=== PATIENT | female | born 1950 | race Caucasian/White ===

== ENCOUNTER 2018-08-19 15:33 | Inpatient (IN) ==
[2018-08-19 16:18] LABS: Baso % (Auto) 0.2 % (0.0-2.0); Hematocrit 43.1 % (35.0-46.0); Hemoglobin 14.6 gm/dL (11.6-15.3); Lymph # (Auto) 0.7 th/mm3 (1.0-4.8); Lymph % (Auto) 6.5 % (9.0-44.0); Mean Corpuscular HGB Conc 33.9 % (32.0-36.0); Mean Corpuscular Hemoglobin 32.6 pg (27.0-34.0); Mean Platelet Volume 8.9 fL (7.0-11.0); Mono # (Auto) 1.2 th/mm3 (0.0-0.9); Mono % (Auto) 10.6 % (0.0-8.0); Neut % (Auto) 82.7 % (16.0-70.0); Platelet Count 179 th/mm3 (150-450); Red Blood Count 4.48 mil/mm3 (4.00-5.30); Red Cell Distribution Width 16.6 % (11.6-17.2); White Blood Count 10.9 th/mm3 (4.0-11.0)
--- NOTE | 2018-08-19 16:20 | XR ---
EXAM DATE: 08/19/2018 4:15 PM EDT AGE/SEX: 89 years / Female INDICATIONS: Fever, cough, and shortness of breath. CLINICAL DATA: This is the patient's initial encounter. Patient reports that signs and symptoms have been present for 1 day and indicates a pain score of Nonresponsive. MEDICAL/SURGICAL HISTORY: Non-responsive. Non-responsive. COMPARISON: No prior exams available for comparison. FINDINGS: There is patchy basilar airspace disease most characteristic of bronchopneumonia in patient with feve r and cough probable trace pleural fluid on the left. No large. There is evidence for underlying. Hea rt size within normal limits. CONCLUSION: Patchy basilar airspace disease most characteristic of bronchopneumonia. Electronically signed by: Hunter Georges MD 08/19/2018 4:18 PM EDT
[2018-08-19] MEDS ORDERED: Azithromycin Inj 500 MG in Sodium Chlor 0.9% Inj 250 ML IV.SIG STA (16:51)
[2018-08-19 16:54] LABS: Alanine Aminotransferase 33 U/L (10-53); Anion Gap 9 meq/L (5-15); Aspartate Aminotransferase 42 U/L (15-37); Blood Urea Nitrogen 40 mg/dL (7-18); Calcium 9.1 mg/dL (8.5-10.1); Carbon Dioxide 28.2 meq/L (21.0-32.0); Chloride 103 meq/L (98-107); Glomerular Filtration Rate 36 mL/min (>89); Glucose,Random 134 mg/dL (74-106); Magnesium 1.8 mg/dL (1.5-2.5); Potassium 4.4 meq/L (3.5-5.1); Sodium 140 meq/L (136-145)
[2018-08-19 16:57] LABS: Alkaline Phosphatase 110 U/L (45-117); Total Protein 7.4 g/dL (6.4-8.2); Troponin I 0.06 ng/mL (0.02-0.05)
[2018-08-19 17:01] LABS: ABG Base Excess 0.4 mmol/L (-2-2); ABG PCO2 74 mmHg (38-42); ABG PO2 78 mmHg (61-120)
--- NOTE | 2018-08-19 17:38 | ED ---
HPI General Chief Complaint: Respiratory Symptoms Stated Complaint: Resp Time Seen by Provider: 08/19/18 15:38 Source: patient and EMS Mode of arrival: EMS Limitations: no limitations History of Present Illness MD Complaint: Reports shortness of breath Onset (ago): day(s) Severity: severe Consistency/Duration: constant and progressively worsening Relieving factors: bronchodilators Exacerbating factors: nothing Known history of: Reports COPD Treatment prior to arrival: Reports oxygen, bronchodilator (DuoNeb x1 and albuterol x2 per EVAC) and other (And Solu-Medrol) Related Data Home oxygen amount: none Home Medications Medication Instructions Recorded Confirmed No Known Home Medications 08/19/18 08/19/18 Allergies Allergy/AdvReac Type Severity Reaction Status Date / Time No Known Allergies Allergy Verified 08/19/18 15:43 Review of Systems ROS: all other systems reviewed are negative [facility] Medical History Medical History COPD (chronic obstructive pulmonary disease) (Acute) Smoker (Acute) Social History Social History Substance History: No History of Abuse Second Hand Smoke Exposure: Yes Smoking Status: Current every day smoker Tobacco Type: Cigarettes How Often Do You Have a Drink Containing Alcohol: 2 to 3 times a week Recent Travel in [facility] within the Last 8 Weeks: No Recent Out of Country Travel within the Last 8 Weeks: No Immunization History Tetanus Immunization: >5 Years Exam Const General: cooperative, healthy appearing, well developed and well groomed Orientation: alert, awake and oriented x3 HENMT Head: normal to inspection, normocephalic and atraumatic Eyes Alignment and Position: alignment normal Conjunctivae: conjunctivae normal Sclera: sclerae normal EOM: EOM intact bilaterally Neck Neck: normal visual inspection and full ROM Chest Chest: normal inspection of the chest Resp Effort & Inspection: cough, labored and tachypneic Auscultation: diminished lung sounds and wheezes Cardio Rate: tachycardic Rhythm: regular rhythm GI Inspection: normal to inspection Palpation: soft Back/Spine/Pelvis Cervical Spine: cervical ROM normal Thoracic/Lumbar Spine: thoraco-lumbar ROM normal Skin General: no rashes or lesions noted and turgor normal Neuro General: alert, awake, oriented x3, moves all extremities and CN's II-XI intact bilaterally Extrem General: normal to inspection and full ROM Psych Appearance: grossly normal Mental Status: mental status grossly normal Speech and Movement: speech and movement normal Mood: congruent mood Affect: normal affect Attitude: cooperative Thought Process: normal Thought Content: normal Judgment: judgment good Course Hospital Course: The patient's respiratory status was checked frequently. She exhibited gradual improvement in her respiratory status. Consultations Consultation #1: Dr. Wheeler will admit to the [facility] since the patient is on BiPAP. Initial Documented Vital Signs Temperature 99.1 F 08/19/18 15:40 Pulse Rate 98 H 08/19/18 15:40 Respiratory Rate 26 H 08/19/18 15:40 Blood Pressure 182/81 H 08/19/18 15:40 Pulse Oximetry 95 08/19/18 15:40 Last Documented Vital Signs Temperature 98.6 F 08/19/18 17:23 Pulse Rate 93 H 08/19/18 17:23 Respiratory Rate 28 H 08/19/18 17:23 Blood Pressure 145/63 H 08/19/18 17:23 Pulse Oximetry 98 08/19/18 17:23 Critical Care Time Critical Care Time: Yes Total Critical Care Time: 45 Attestation: Time to perform other separately billable procedures was not included in the critical care time. My time did not include minutes spent treating any other patients simultaneously or on activities that did not directly contribute to the patient's treatment. The services I provided to this patient were to treat and/or prevent clinically significant deterioration due to respiratory distress, respiratory failure, pneumonia I provided critical care services requiring my management, as noted below: Chart data review, documentation time, medication orders and management, vital sign assessments/reviewing monitor data, ordering and reviewing lab tests, ordering and interpreting/reviewing x-rays and diagnostic studies, care of the patient and discussion of the patient with the admitting physicians Medical Decision Making MDM Narrative Medical decision making narrative: This patient presents to us by EVAC with respiratory distress. EVAC states that her initial room air saturation was 51% and her initial CO2 was 86. They treated her in route with oxygen, a DuoNeb, 2 albuterol nebs and Solu-Medrol. Her sats improved to 97%. That was on oxygen. Her CO2 came down to 55. The patient admits that she has been told before that she has COPD. This patient presented in significant respiratory distress. Sepsis workup was initiated. ABG has been obtained and shows CO2 retention. She has been placed on BiPAP. Her chest x-ray shows a left lower lobe infiltrate. She has been treated with IV Rocephin and Zithromax. Her lactic acid and white blood count are normal. However, she is tachycardic, tachypneic and has EZEQUIEL. Therefore, she meets criteria for sepsis. Medical Screen Exam Complete: Yes Emergency Medical Condition: Yes Lab Data Lab results reviewed: Yes I reviewed the patient's lab results. Result diagrams: 08/19/18 16:00 08/19/18 16:00 Lab Results 08/19/18 08/19/18 08/19/18 Range/Units 15:58 16:00 16:00 WBC 10.9 (4.0-11.0) th/mm3 RBC 4.48 (4.00-5.30) mil/mm3 Hgb 14.6 (11.6-15.3) gm/dL Hct 43.1 (35.0-46.0) % MCV 96.0 (80.0-100.0) fL MCH 32.6 (27.0-34.0) pg MCHC 33.9 (32.0-36.0) % RDW 16.6 (11.6-17.2) % Plt Count 179 (150-450) th/mm3 MPV 8.9 (7.0-11.0) fL Neut % (Auto) 82.7 H (16.0-70.0) % Lymph % (Auto) 6.5 L (9.0-44.0) % [place] % (Auto) 10.6 H (0.0-8.0) % Eos % (Auto) 0.0 (0.0-4.0) % Baso % (Auto) 0.2 (0.0-2.0) % Neut # (Auto) 9.0 H (1.8-7.7) th/mm3 Lymph # (Auto) 0.7 L (1.0-4.8) th/mm3 [place] # (Auto) 1.2 H (0.0-0.9) th/mm3 Eos # (Auto) 0.0 (0.0-0.4) th/mm3 Baso # (Auto) 0.0 (0.0-0.2) th/mm3 WBC Differential . Differential Comment Auto diff final Puncture Site Patient Temperature O2 Saturation (90-100) % ABG pH (7.380-7.420) ABG pCO2 (38-42) mmHg ABG pO2 (61-120) mmHg ABG HCO3 (22-26) mmol/L ABG O2 Content (12.0-20.0) Vol % ABG Base Excess (-2-2) mmol/L ABG Methemoglobin (0-2) % Marco Test Hemoglobin (12.0-16.0) G/DL Carboxyhemoglobin (0-4) % O2 Delivery Device Liter Flow L/M Vent Setting Inspired O2 % Critical Value Sodium 140 (136-145) meq/L Potassium 4.4 (3.5-5.1) meq/L Chloride 103 (98-107) meq/L Carbon Dioxide 28.2 (21.0-32.0) meq/L Anion Gap 9 (5-15) meq/L BUN 40 H (7-18) mg/dL Creatinine 1.29 H (0.50-1.00) mg/dL Estimated GFR 36 L (>89) mL/min POC Glucose 124 H (68-110) mg/dl Random Glucose 134 H (74-106) mg/dL Lactic Acid (0.4-2.0) mmol/L Calcium 9.1 (8.5-10.1) mg/dL Magnesium 1.8 (1.5-2.5) mg/dL Total Bilirubin 0.4 (0.2-1.0) mg/dL AST 42 H (15-37) U/L ALT 33 (10-53) U/L Alkaline Phosphatase 110 (45-117) U/L Troponin I 0.06 H (0.02-0.05) ng/mL Total Protein 7.4 (6.4-8.2) g/dL Albumin 3.0 L (3.4-5.0) g/dL 08/19/18 08/19/18 08/19/18 Range/Units 16:00 16:55 19:08 WBC (4.0-11.0) th/mm3 RBC (4.00-5.30) mil/mm3 Hgb (11.6-15.3) gm/dL Hct (35.0-46.0) % MCV (80.0-100.0) fL MCH (27.0-34.0) pg MCHC (32.0-36.0) % RDW (11.6-17.2) % Plt Count (150-450) th/mm3 MPV (7.0-11.0) fL Neut % (Auto) (16.0-70.0) % Lymph % (Auto) (9.0-44.0) % [place]illingham % (Auto) (0.0-8.0) % Eos % (Auto) (0.0-4.0) % Baso % (Auto) (0.0-2.0) % Neut # (Auto) (1.8-7.7) th/mm3 Lymph # (Auto) (1.0-4.8) th/mm3 [place]ham # (Auto) (0.0-0.9) th/mm3 Eos # (Auto) (0.0-0.4) th/mm3 Baso # (Auto) (0.0-0.2) th/mm3 WBC Differential Differential Comment Puncture Site Left radial Left brachial Patient Temperature 98.6 98.6 O2 Saturation 90 92 (90-100) % ABG pH 7.20 L* 7.15 L* (7.380-7.420) ABG pCO2 74 H* 73 H* (38-42) mmHg ABG pO2 78 91 (61-120) mmHg ABG HCO3 28 H 25 (22-26) mmol/L ABG O2 Content 18.0 17.1 (12.0-20.0) Vol % ABG Base Excess 0.4 -3.1 L (-2-2) mmol/L ABG Methemoglobin 1.0 1.1 (0-2) % Marco Test Y Present Hemoglobin 14.2 13.1 (12.0-16.0) G/DL Carboxyhemoglobin 1.3 1.0 (0-4) % O2 Delivery Device Nasal cannula Bipap Liter Flow 4.50 L/M Vent Setting 10ipap/5epap Inspired O2 50 % Critical Value Yes Yes Sodium (136-145) meq/L Potassium (3.5-5.1) meq/L Chloride (98-107) meq/L Carbon Dioxide (21.0-32.0) meq/L Anion Gap (5-15) meq/L BUN (7-18) mg/dL Creatinine (0.50-1.00) mg/dL Estimated GFR (>89) mL/min POC Glucose (68-110) mg/dl Random Glucose (74-106) mg/dL Lactic Acid 1.2 (0.4-2.0) mmol/L Calcium (8.5-10.1) mg/dL Magnesium (1.5-2.5) mg/dL Total Bilirubin (0.2-1.0) mg/dL AST (15-37) U/L ALT (10-53) U/L Alkaline Phosphatase (45-117) U/L Troponin I (0.02-0.05) ng/mL Total Protein (6.4-8.2) g/dL Albumin (3.4-5.0) g/dL Imaging Data Attestation: I personally reviewed and interpreted this imaging study as follows : Radiologist's impression: Chest X-Ray 08/19/18 15:51 CONCLUSION: Patchy basilar airspace disease most characteristic of bronchopneumonia. ECG Data EKG Prior to Arrival: No Attestation: I personally reviewed and interpreted this ECG as follows: (EKG shows a sinus rhythm with a rate of 90. I do not see any acute STT wave changes.) Discharge Plan Discharge Disposition Patient Disposition: 30 Still Patient Discharge Details Diagnosis: Respiratory failure, Sepsis, Pneumonia Physicians Team ED Provider: Delia Smalls Primary Care Provider: UNKNOWN, Rxs /Orders / Referrals /Forms Prescriptions: No Action No Known Home Medications RF: 0 Status ED Status: With Doctor
[2018-08-19] MEDS: Sod Chloride 0.9% Inj 1,000 ML IV.SIG SCH ×2 (17:59→20:26)
[2018-08-19 19:22] LABS: ABG Base Excess -3.1 mmol/L (-2-2); ABG PCO2 73 mmHg (38-42); ABG PO2 91 mmHg (61-120)
--- NOTE | 2018-08-19 20:14 | P.HPCC ---
History of Present Illness Service: Critical care medicine Primary Care Physician: UNKNOWN Chief Complaint: Shortness of breath History of Present Illness: 67-year-old female who came in as a Jeimy Ramos. Her name is Meche Osorio and she does not have any prior visits to [facility]. She has PMH of COPD , ongoing tobacco abuse, anorexia/bulemia (participates in induced vomiting), EtOH abuse but reportedly abstaining for the last 2-3 months. She lives alone in a condominium and has reportedly been short of breath for several days. Condo residents have noticed that she has had confusion and lethargy. She was found in her condo on the floor near a sink, soiled with feces. She has had a productive cough without fever or chills. Denies chest pain. She states she does not have inhalers/nebs at home and her friend states "she avoids going to the doctor and does not have a PCP". She was in respiratory distress with audible wheezing and EVAC administered Solu-Medrol, DuoNeb x1 and albuterol neb x2 prior to arrival. When she arrived in the ED ABG was obtained on 4-5 L nasal cannula and pH was 7.20/PaCO2 of 74/PaO2 of 78/bicarb 28. She was placed on BiPAP 10/5. She was given albuterol nebs x3. Repeat ABG was pretty similar. Chest x-ray demonstrated bibasilar opacities. Blood cultures have been obtained and she has received Rocephin, azithromycin, 2 L normal saline bolus in the emergency department. Her friend, Leta Lemus, states she is her healthcare surrogate. She has a living will that limits life support interventions in the setting of endstage, terminal condition or neurovegetative state. Patient and Leta are currently agreeable to intubation if needed. - Diagnosis (1) Community acquired pneumonia (2) Hypercapnic respiratory failure (3) COPD exacerbation (4) Tobacco abuse (5) Anorexia nervosa with bulimia (6) EZEQUIEL (acute kidney injury) (7) Encephalopathy acute (8) History of ETOH abuse Inpatient Certification: I certify that the inpatient services were ordered in accordance with Medicare regulations governing the order. This includes certification that hospital inpatient services are reasonable and necessary and in the case of services not specified as inpatient-only under 42 CFR 419.22(n), that they are appropriately provided as inpatient services in accordance to with the 2-midnight benchmark under 43 CFR 412.3(e) Review of Systems All other systems reviewed negative except as stated in HPI [facility] - History History Provided By: Patient - Medical History Medical History: Medical History (Last Updated 08/19/18 @ 21:10 by Monae Wheeler MD) Anorexia nervosa with bulimia COPD (chronic obstructive pulmonary disease) History of ETOH abuse Smoker - Surgical History Surgical History: Surgical History (Last Updated 08/19/18 @ 21:10 by Monae Wheeler MD) H/O cosmetic surgery - Family History Family History: Family History (Last Updated 08/19/18 @ 21:11 by Monae Wheeler MD) Other Unknown family medical history - Tobacco History Second Hand Smoke Exposure: Yes Tobacco Use In Past 30 Days: Yes Smoking Status: Current every day smoker Tobacco Type: Cigarettes - Alcohol History How Often Do You Have a Drink Containing Alcohol: 4 or more times a week ( history of daily drinking, reportedly abstained last 2-3 month) - Substance Use History Substance History: No History of Abuse - Travel History Recent Travel in the [place] Within the Last 8 Weeks: No Recent Travel Out of the Country Within the Last 8 Weeks: No - Immunization History Tetanus Immunization: >5 Years Medications and Allergies Active Medications: Active Medications Albuterol (Duoneb Neb (Ted)) 1 ampul NEB Q4HR NEB TED Last Admin: 08/19/18 20:12 Dose: 1 ampul Albuterol (Albuterol Neb (Prn)) 2.5 mg NEB Q2HR NEB PRN PRN Reason: WHEEZING Sodium Chloride (Ns Inj) 1,000 mls @ 0 mls/hr IV.SIG BOLUS TED Stop: 08/20/18 17:46 Last Admin: 08/19/18 17:59 Dose: 999 mls/hr Allergies Allergy/AdvReac Type Severity Reaction Status Date / Time No Known Allergies Allergy Verified 08/19/18 15:43 Home Medications Medication Instructions Recorded Confirmed Type No Known Home Medications 08/19/18 08/19/18 History Results - Labs CBC & Chem 7: 08/20/18 03:34 08/20/18 03:34 Labs: Short CBC 08/19/18 Range/Units 16:00 WBC 10.9 (4.0-11.0) th/mm3 Hgb 14.6 (11.6-15.3) gm/dL Hct 43.1 (35.0-46.0) % Plt Count 179 (150-450) th/mm3 BMP 08/19/18 16:00 Sodium 140 Potassium 4.4 Chloride 103 Carbon Dioxide 28.2 BUN 40 H Creatinine 1.29 H Calcium 9.1 Cardiac Enzymes 08/19/18 Range/Units 16:00 Troponin I 0.06 H (0.02-0.05) ng/mL Liver Function 08/19/18 Range/Units 16:00 Total Bilirubin 0.4 (0.2-1.0) mg/dL AST 42 H (15-37) U/L ALT 33 (10-53) U/L Alkaline Phosphatase 110 (45-117) U/L Albumin 3.0 L (3.4-5.0) g/dL - Imaging Impressions Chest X-Ray 08/19/18 15:51 CONCLUSION: Patchy basilar airspace disease most characteristic of bronchopneumonia. Exam Vital signs: Vital Signs 08/19/18 15:40 08/19/18 15:51 08/19/18 16:08 Temperature 99.1 F Pulse Rate 98 H 96 H 95 H Respiratory Rate 26 H 38 H Blood Pressure 182/81 H Pulse Oximetry 95 94 L 08/19/18 16:10 08/19/18 16:15 08/19/18 16:25 Temperature 98.9 F Pulse Rate 97 H 89 91 H Respiratory Rate 38 H 17 20 Blood Pressure 151/84 H Pulse Oximetry 95 08/19/18 17:18 08/19/18 17:23 08/19/18 19:59 Temperature 98.6 F Pulse Rate 93 H Respiratory Rate 28 H Blood Pressure 145/63 H Pulse Oximetry 97 98 96 08/19/18 20:04 Temperature Pulse Rate Respiratory Rate Blood Pressure Pulse Oximetry 96 Intake & Output 08/19/18 08/19/18 08/20/18 06:59 18:59 06:59 Intake Total 100 / 100 250 / 250 Balance 100 / 100 250 / 250 Weight 49.895 kg Intake: IV 100 / 100 250 / 250 Azithromycin Inj 500 MG In NS 250 / 250 Inj 250 ML @ 250 mls/hr IV.SIG STAT STA Rx#:[id number] Rocephin Inj 2,000 MG In NS Inj 100 / 100 100 ML @ 200 mls/hr IV.SIG STAT STA Rx#:[id number] Narrative: GENERAL: Undernourished appearing female who is laying in ED stretcher on Bipap. SKIN: Warm and dry. HEAD: Atraumatic. Normocephalic. EYES: Pupils equal and round. No scleral icterus. No injection or drainage. ENT: Bipap mask in place. NECK: Trachea midline. No JVD. CARDIOVASCULAR: Regular rate and rhythm. No murmurs rubs or gallops. RESPIRATORY: Tachypneic on Bipap but without accessory muscle use. She is coughing repeatedly with mobile rhonchorous breath sounds. Bilateral expiratory wheeze, diminished left base. GASTROINTESTINAL: Abdomen soft, non-tender, nondistended. Bowel sounds present. MUSCULOSKELETAL: Extremities without clubbing, cyanosis, or edema. NEUROLOGICAL: Awake, unable to assess speech fully as she is on BiPAP but she does answer some questions. No obvious cranial nerve deficits. She moves all extremities to command Caprini VTE Risk Assessment Caprini VTE Risk Assessment: Moderate/High Risk (score >= 2) Caprini Risk Assessment Model: Point Value = 1 Point Value = 2 Point Value = 3 Point Value = 5 Age 41-60 Minor surgery BMI > 25 kg/m2 Swollen legs Varicose veins or History of unexplained or recurrent spontaneous Oral contraceptives or hormone replacement Sepsis (< 1 month) Serious lung disease, including pneumonia (< 1 month) Abnormal pulmonary function Acute myocardial infarction Congestive heart failure (< 1 month) History of inflammatory bowel disease Medical patient at bed rest Age 61-74 Arthroscopic surgery Major open surgery (> 45 min) Laparoscopic surgery (> 45 min) Malignancy Confined to bed (> 72 hours) Immobilizing plaster cast Central venous access Age >= 75 History of VTE Family history of VTE Factor V Leiden Prothrombin [id number] Lupus anticoagulant Anticardiolipin antibodies Elevated serum homocysteine Heparin-induced thrombocytopenia Other congenital or acquired thrombophilia Stroke (< 1 month) Elective arthroplasty Hip, pelvis, or leg fracture Acute spinal cord injury (< 1 month) Prophylaxis Regimen: Total Risk Factor Score Risk Level Prophylaxis Regimen 0-1 Low Early ambulation 2 Moderate Order ONE of the following: *Sequential Compression Device (SCD) *Heparin 5000 units SQ BID 3-4 Higher Order ONE of the following medications: *Heparin 5000 units SQ TID *Enoxaparin/Lovenox 40 mg SQ daily (WT < 150 kg, CrCl > 30 mL/min) *Enoxaparin/Lovenox 30 mg SQ daily (WT < 150 kg, CrCl > 10-29 mL/min) *Enoxaparin/Lovenox 30 mg SQ BID (WT < 150 kg, CrCl > 30 mL/min) AND/OR *Sequential Compression Device (SCD) 5 or more Highest Order ONE of the following medications: *Heparin 5000 units SQ TID (Preferred with Epidurals) *Enoxaparin/Lovenox 40 mg SQ daily (WT < 150 kg, CrCl > 30 mL/min) *Enoxaparin/Lovenox 30 mg SQ daily (WT < 150 kg, CrCl > 10-29 mL/min) *Enoxaparin/Lovenox 30 mg SQ BID (WT < 150 kg, CrCl > 30 mL/min) AND *Sequential Compression Device (SCD) Assessment and Plan - Problem List (1) Community acquired pneumonia Code(s): J18.9 - Pneumonia, unspecified organism Status: Acute (2) Hypercapnic respiratory failure Code(s): J96.92 - Respiratory failure, unspecified with hypercapnia Status: Acute (3) COPD exacerbation Code(s): J44.1 - Chronic obstructive pulmonary disease with (acute) exacerbation Status: Acute (4) Tobacco abuse Code(s): Z72.0 - Tobacco use Status: Chronic (5) Anorexia nervosa with bulimia Code(s): F50.02 - Anorexia nervosa, binge eating/purging type Status: Chronic (6) EZEQUIEL (acute kidney injury) Code(s): N17.9 - Acute kidney failure, unspecified Status: Acute (7) Encephalopathy acute Code(s): G93.40 - Encephalopathy, unspecified Status: Acute (8) History of ETOH abuse Code(s): Z87.898 - Personal history of other specified conditions Status: Chronic - Assessment and Plan Plan: NEURO: Acute encephalopathy secondary to hypercapnia History of alcohol dependence (reportedly not recently) Monitor for signs and symptoms of alcohol withdrawal. Multivitamin/folate acid/ thiamine IV (ordered for 3 days for now) and transition to p.o. supplementation when appropriate. Avoid sedatives Check ammonia level and CT brain. RESP: Acute hypercapnic respiratory failure Acute COPD exacerbation Acute community-acquired pneumonia Ongoing tobacco abuse Bipap 18/, repeat ABG at 0100. Patient is reticent to proceed with intubation , but will agree to it if "life or ". DuoNeb every 4 hours. Albuterol every 2 hours as needed. Solu-Medrol 60 mg IV every 6 hours. Antibiotics as per below Tobacco cessation counseling discussed. CV: Mild troponin elevation Aspirin 300 mg NE now. Serial troponin and EKGs. Obtain 2D echo. GI: Anorexia/bulimia Chronic mild protein energy malnutrition N.p.o. for now and advance diet when stabilized from respiratory standpoint. FEN/RENAL: Acute kidney injury Monitor I/O and BMP. Replace electrolytes as indicated per ICU electrolyte placement protocol Check CPK and phos. Magnesium sulfate 2 g IV now . Purewick catheter, bladder scan and I/O cath if needed. ID: Acute community-acquired pneumonia Blood cultures were sent the emergency department. Continue rocephin and azithromycin. Influenza screen negative. F/u sputum culture Send urine Legionella pneumococcal antigen. HEME: No acute hematologic issues ENDO: Monitor bedside glucose every 6 hours while on steroids and administer low-dose insulin sliding scale as indicated. PROPH: SCDs/Lovenox 40 mg subcu daily for DVT prophylaxis. Famotidine IV for stress ulcer prophylaxis. ACCESS: Peripheral IV providing adequate access at this time. FULL CODE Has a living will. A copy was placed on the chart by ED RN. Patient is critically ill with COPD and ongoing tobacco abuse now with superimposed pneumonia and hypercapnic respiratory failure who is at high risk for further deterioration including high risk for requiring intubation. Critical care time 60 minutes exclusive of separately billable procedures.
[2018-08-19] MEDS ORDERED: Acetaminophen 325 MG Tablet PO PRN (20:39)
[2018-08-19] MEDS ORDERED: Bisacodyl 10 MG Supp RECTAL PRN (20:39)
[2018-08-19] MEDS ORDERED: Dextrose 50% in Water 50 ML Vial IV.PUSH PRN (20:51)
[2018-08-19] MEDS ORDERED: Aspirin 300 MG Supp RECTAL ONE (21:00)
[2018-08-19] MEDS ORDERED: Famotidine PF Inj 20 MG/2 ML Vial IV.PUSH SCH (21:00)
[2018-08-19] MEDS: Enoxaparin Inj 40 MG/0.4 ML Syringe SQ SCH (21:07)
--- NOTE | 2018-08-19 21:14 | CT ---
EXAM DATE: 08/19/2018 9:11 PM EDT AGE/SEX: 89 years / Female INDICATIONS: Altered mental status. CLINICAL DATA: This is the patient's initial encounter. Patient reports that signs and symptoms have been present for 1 day and indicates a pain score of Nonresponsive. MEDICAL/SURGICAL HISTORY: Chronic obstructive pulmonary disease. None. RADIATION DOSE: 52.13 CTDI (mGy) COMPARISON: No prior exams available for comparison. TECHNIQUE: CT of the head without contrast. Using automated exposure control and adjustment of the mA and/or kV according to patient size, radiation dose was kept as low as reasonably achievable to ob tain optimal diagnostic quality images. DICOM format image data is available electronically for revi ew and comparison. FINDINGS: Cerebrum: Moderate diffuse cerebral atrophy. The ventricles are normal for degree of atrophy. No barak dence of midline shift, mass lesion, hemorrhage or acute infarction. No extraaxial fluid collections are seen. Posterior Fossa: The cerebellum and brainstem are intact. The 4th ventricle is midline. The cerebe llopontine angle is unremarkable. Extracranial: The visualized portion of the orbits is intact. Skull: The calvaria is intact. No evidence of skull fracture. CONCLUSION: 1. Senescent changes without acute intracranial abnormality. . Electronically signed by: Alireza Venegas MD 08/19/2018 9:13 PM EDT
[2018-08-19] MEDS ORDERED: Magnesium Sulfate Inj 4 GM in Sodium Chlor 0.9% Inj 92 ML IV.SIG PRN (21:21)
[2018-08-19] MEDS ORDERED: Sodium Phosphate Inj 30 MMOL in Sodium Chlor 0.9% Inj 250 ML IV.SIG PRN (21:21)
[2018-08-19] MEDS ORDERED: Potassium Chlor 20 mEq Premix 20 MEQ/100 ML PIGGYBACK IV.SIG PRN ×2 (21:21)
[2018-08-19] MEDS ORDERED: Potassium Chlor 40 mEq Premix 40 MEQ/100 ML PIGGYBACK IV.SIG PRN ×2 (21:21)
[2018-08-19] MEDS ORDERED: Potassium Phosphate Inj 30 MMOL in Sodium Chlor 0.9% Inj 250 ML IV.SIG PRN (21:21)
[2018-08-19] MEDS ORDERED: Potassium Phosphate 500 MG Soluble Tablet PO PRN ×2 (21:21)
[2018-08-19] MEDS ORDERED: Potassium Chloride 25 MEQ Effervescent Tablet PO PRN (21:21)
[2018-08-19] MEDS ORDERED: Magnesium Oxide 400 MG Tablet PO PRN (21:21)
[2018-08-19] MEDS ORDERED: Magnesium Sulfate Inj 2 GM in Sodium Chlor 0.9% Inj 96 ML IV.SIG PRN (21:21)
[2018-08-19] MEDS ORDERED: Magnesium Sulfate Inj 2 GM in Sodium Chlor 0.9% Inj 96 ML IV.SIG ONE (21:30)
[2018-08-19 22:05] LABS: Creatine Kinase 59 U/L (26-192)
[2018-08-19] MEDS: Senna/Docusate Sodium 8.6/50 MG Tablet PO SCH (22:18)
[2018-08-19] MEDS: MethylPREDNISolone Sod Succinate Inj 125 MG/2 ML Vial IV.PUSH SCH (22:18)
[2018-08-19 23:12] LABS: Phosphorus 3.1 mg/dL (2.5-4.9)
[2018-08-19 23:15] LABS: Troponin I 0.05 ng/mL (0.02-0.05)
[2018-08-19] MEDS: Insulin NovoLOG Aspart Correctional Sugar Inj SQ SCH (23:58)
[2018-08-20 01:15] LABS: ABG Base Excess -1.3 mmol/L (-2-2); ABG PCO2 69 mmHg (38-42); ABG PO2 99 mmHG (61-120)
[2018-08-20] MEDS: MethylPREDNISolone Sod Succinate Inj 125 MG/2 ML Vial IV.PUSH SCH ×4 (03:21→22:53)
[2018-08-20] MEDS: Chlorhexidine Gluconate 2% 1 Pack (2 Cloths) TOPICAL SCH (03:22)
[2018-08-20] MEDS ORDERED: Chlorhexidine Gluconate 2% 1 Pack (2 Cloths) TOPICAL PRN (04:00)
[2018-08-20 04:07] LABS: ABG Base Excess -0.8 mmol/L (-2-2); ABG PCO2 61 mmHg (38-42); ABG PO2 82 mmHG (61-120)
[2018-08-20 04:09] LABS: Baso % (Auto) 0.1 % (0.0-2.0); Hematocrit 38.9 % (35.0-46.0); Hemoglobin 13.1 gm/dL (11.6-15.3); Lymph # (Auto) 0.4 th/mm3 (1.0-4.8); Lymph % (Auto) 3.6 % (9.0-44.0); Mean Corpuscular HGB Conc 33.7 % (32.0-36.0); Mean Corpuscular Hemoglobin 32.5 pg (27.0-34.0); Mean Corpuscular Volume 96.5 fL (80.0-100.0); Mono # (Auto) 0.5 th/mm3 (0.0-0.9); Mono % (Auto) 5.1 % (0.0-8.0); Neut # (Auto) 9.5 th/mm3 (1.8-7.7); Neut % (Auto) 91.2 % (16.0-70.0); Platelet Count 163 th/mm3 (150-450); Red Blood Count 4.03 mil/mm3 (4.00-5.30); Red Cell Distribution Width 16.2 % (11.6-17.2); White Blood Count 10.4 th/mm3 (4.0-11.0)
[2018-08-20 04:48] LABS: Alanine Aminotransferase 75 U/L (10-53); Albumin 2.3 g/dL (3.4-5.0); Alkaline Phosphatase 123 U/L (45-117); Anion Gap 7 meq/L (5-15); Aspartate Aminotransferase 131 U/L (15-37); Blood Urea Nitrogen 39 mg/dL (7-18); Calcium 8.3 mg/dL (8.5-10.1); Carbon Dioxide 26.8 meq/L (21.0-32.0); Chloride 107 meq/L (98-107); Glomerular Filtration Rate 47 mL/min (>89); Glucose,Random 192 mg/dL (74-106); Magnesium 2.4 mg/dL (1.5-2.5); Phosphorus 2.7 mg/dL (2.5-4.9); Potassium 4.2 meq/L (3.5-5.1); Sodium 141 meq/L (136-145); Total Protein 6.2 g/dL (6.4-8.2); Troponin I 0.04 ng/mL (0.02-0.05)
[2018-08-20] MEDS: Insulin NovoLOG Aspart Correctional Sugar Inj SQ SCH ×3 (05:51→18:02)
[2018-08-20] MEDS ORDERED: Etomidate Inj 40 MG/20 ML Vial IV.PUSH ONE ×2 (06:43→06:44)
[2018-08-20] MEDS ORDERED: Propofol Inj 500 MG/50 ML Vial ONE (06:49)
--- NOTE | 2018-08-20 07:25 | XR ---
EXAM DATE: 08/20/2018 7:20 AM EDT AGE/SEX: 67 years / Female INDICATIONS: Intubation. CLINICAL DATA: This is the patient's initial encounter. Patient reports that signs and symptoms have been present for 2 days and indicates a pain score of Nonresponsive. MEDICAL/SURGICAL HISTORY: Non-responsive. Non-responsive. COMPARISON: [facility] [place] 1[place], [place]/19/2018. . FINDINGS: Portable AP view of the chest demonstrates a normal size cardiac silhouette. Endotracheal tube is pre sent with distal tip at the aortic knob level measuring approximately 4.1 cm from the pineda. There i s bibasilar airspace consolidation, left greater than right. No pleural effusion or pneumothorax is i dentified. The bones and soft tissues demonstrate no acute finding. CONCLUSION: 1. Endotracheal tube is in appropriate position with tip approximately 4 cm from the pineda. 2. Stable bibasilar airspace consolidation, left greater than right. Electronically signed by: Reno Aparicio MD 08/20/2018 7:24 AM EDT
--- NOTE | 2018-08-20 07:47 | P.PNCC ---
Subjective Subjective Remarks/Hospital Course: 67-year-old female who came in as a Jeimy Ramos. Her name is Meche Osorio and she [place] [facility] [place] has PMH of COPD , ongoing tobacco abuse, anorexia/bulemia (participates in induced vomiting), EtOH abuse but reportedly abstaining for the last 2-3 months. She lives alone in a condominium and has reportedly been short of breath for several days. Condo residents have noticed that she has had confusion and lethargy. She was found in her condo on the floor near a sink, soiled with feces. She has had a productive cough without fever or chills. Denies chest pain. She states she does not have inhalers/nebs at home and her friend states "she avoids going to the doctor and does not have a PCP". She was in respiratory distress with audible wheezing and EVAC administered Solu-Medrol, DuoNeb x1 and albuterol neb x2 prior to arrival. When she arrived in the ED ABG was obtained on 4-5 L nasal cannula and pH was 7.20/PaCO2 of 74/PaO2 of 78/bicarb 28. She was placed on BiPAP 07/29. She was given albuterol nebs x3. Repeat ABG was pretty similar. Chest x-ray demonstrated bibasilar opacities. Blood cultures have been obtained and she has received Rocephin, azithromycin, 2 L normal saline bolus in the emergency department. SUBJECTIVE: 08/20: Patient was orotracheally intubated this a.m. due to altered mental status/ABGs. Currently resting in bed in no acute distress. NG tube replaced and we placed on propofol and fentanyl drips. Will initiate tube feeding. Objective Vital Signs / I&O: Vital Signs 08/19/18 15:40 08/19/18 15:51 08/19/18 16:08 Temperature 99.1 F Pulse Rate 98 H 96 H 95 H Respiratory Rate 26 H 38 H Blood Pressure 182/81 H Pulse Oximetry 95 94 L 08/19/18 16:10 08/19/18 16:15 08/19/18 16:25 Temperature 98.9 F Pulse Rate 97 H 89 91 H Respiratory Rate 38 H 17 20 Blood Pressure 151/84 H Pulse Oximetry 95 08/19/18 17:18 08/19/18 17:23 08/19/18 19:59 Temperature 98.6 F Pulse Rate 93 H Respiratory Rate 28 H Blood Pressure 145/63 H Pulse Oximetry 97 98 96 08/19/18 20:04 08/19/18 20:13 08/19/18 20:40 Temperature Pulse Rate 88 82 Respiratory Rate 24 16 Blood Pressure 113/56 L Pulse Oximetry 96 99 08/19/18 21:55 08/19/18 21:58 08/19/18 22:00 Temperature 98.9 F Pulse Rate 87 85 84 Respiratory Rate 47 H 31 H 25 H Blood Pressure 156/72 H 149/67 H Pulse Oximetry 100 100 100 08/19/18 22:10 08/19/18 23:00 08/19/18 23:50 Temperature Pulse Rate 76 Respiratory Rate 31 H Blood Pressure Pulse Oximetry 99 100 96 08/19/18 23:51 08/20/18 00:00 08/20/18 01:00 Temperature Pulse Rate 73 74 75 Respiratory Rate 10 L 40 H 106 H Blood Pressure 127/58 L 140/70 Pulse Oximetry 99 97 08/20/18 01:22 08/20/18 02:00 08/20/18 03:00 Temperature Pulse Rate 98 H 74 Respiratory Rate 35 H 24 Blood Pressure 140/80 138/76 Pulse Oximetry 97 95 95 08/20/18 03:11 08/20/18 03:13 08/20/18 04:00 Temperature Pulse Rate 84 74 Respiratory Rate 19 27 H Blood Pressure 143/74 H Pulse Oximetry 92 L 96 08/20/18 05:00 08/20/18 06:00 08/20/18 06:01 Temperature Pulse Rate 72 122 H 72 Respiratory Rate 30 H 35 H 30 H Blood Pressure 138/71 139/79 Pulse Oximetry 98 100 97 08/20/18 07:26 Temperature Pulse Rate 85 Respiratory Rate 16 Blood Pressure Pulse Oximetry 100 Intake & Output 08/19/18 08/20/18 08/20/18 18:59 06:59 18:59 Intake Total 100 / 100 2450 / 2450 Balance 100 / 100 2450 / 2450 Weight 49.895 kg 58.8 kg Intake: IV 100 / 100 2450 / 2450 Azithromycin Inj 500 MG In NS 250 / 250 Inj 250 ML @ 250 mls/hr IV.SIG STAT STA Rx#:[id number] Magnesium Sulfate Inj 2 GM In 100 / 100 NS Inj 96 ML @ 50 mls/hr IV.SIG ONCE ONE Rx#:[id number] NS Inj 1,000 ML @ Wide Open IV. 1999 SIG BOLUS MARILEE Rx#:[id number] Rocephin Inj 1,000 MG In NS Inj 100 / 100 100 ML @ 200 mls/hr IV.SIG Q12H MARILEE Rx#:[id number] Rocephin Inj 2,000 MG In NS Inj 100 / 100 100 ML @ 200 mls/hr IV.SIG STAT STA Rx#:[id number] Other: Date of Last Bowel Movement 08/20/18 Weight On Admission 56.9 kg Result Diagrams: 08/20/18 03:34 08/20/18 03:34 Other Results: Head CT 08/19/18 00:00 CONCLUSION: 1. Senescent changes without acute intracranial abnormality. . Chest X-Ray 08/19/18 15:51 CONCLUSION: Patchy basilar airspace disease most characteristic of bronchopneumonia. Chest X-Ray 08/20/18 07:00 CONCLUSION: 1. Endotracheal tube is in appropriate position with tip approximately 4 cm from the pineda. 2. Stable bibasilar airspace consolidation, left greater than right. Imaging: Head CT 08/19/18 00:00 CONCLUSION: 1. Senescent changes without acute intracranial abnormality. . Chest X-Ray 08/19/18 15:51 CONCLUSION: Patchy basilar airspace disease most characteristic of bronchopneumonia. Chest X-Ray 08/20/18 07:00 CONCLUSION: 1. Endotracheal tube is in appropriate position with tip approximately 4 cm from the pineda. 2. Stable bibasilar airspace consolidation, left greater than right. Objective Remarks: GENERAL: 67-year-old female currently orotracheally intubated SKIN: Warm and dry. No rash HEAD: Atraumatic. Normocephalic. EYES: Pupils equal and round. No scleral icterus. No injection or drainage. ENT: No nasal bleeding or discharge. Mucous membranes pink and moist. NECK: Trachea midline. No JVD. CARDIOVASCULAR: Regular rate and rhythm. S1, S2. No S4. Without murmur RESPIRATORY: Coarse rhonchorous breath sounds appreciated bilaterally. No wheezing. GASTROINTESTINAL: Abdomen soft, non-tender, nondistended. Hypoactive bowel sounds appreciated. MUSCULOSKELETAL: Extremities without significant peripheral edema. No obvious deformities. NEUROLOGICAL: Prior to intubation, awake and alert. No obvious cranial nerve deficits. Motor grossly within normal limits. Five out of 5 muscle strength in the arms and legs. Normal speech. Assessment and Plan - Assessment and Plan Plan: NEURO/Psych: Acute encephalopathy secondary to hypercapnia History of alcohol dependence Currently on propofol/fentanyl drips for sedation/analgesia while intubated Goal of RASS -2 Daily sedation vacation Monitor for signs and symptoms of alcohol withdrawal. Multivitamin/folate acid/thiamine Acetaminophen 650 g per tube every 6 hours as needed fever RESP: Acute hypercapnic respiratory failure Acute COPD exacerbation Acute community-acquired pneumonia Ongoing tobacco abuse [facility] 16/500/ Ventilator bundle Albuterol/ipratropium aerosols every 4 hours with albuterol aerosols every 2 hours as needed for dyspnea Budesonide 0.5/2 1 inhalation twice daily Methylprednisolone succinate 40 mg IV every 8 hours Tobacco cessation counseling discussed per note of overnight corner cutter. Follow-up on post intubation ABG and chest x-ray CV: Elevated troponin Essential hypertension Aspirin 300 mg FL was given 08/19 Troponin is downward trending. Likely secondary to demand ischemia secondary to hypoxia/hypercapnia. Follow-up on 2D echocardiogram As needed labetalol/hydralazine/Nitropaste GI: History of anorexia/bulimia Chronic mild protein energy malnutrition hypoalbuminemia Elevated transaminases NGT to LIWS Initiate tube feedings with Glucerna 1.5 goal 50 cc an hour Check liver ultrasound and hepatitis panel Lansoprazole for GI prophylaxis Docusate serum/senna 1 tablet twice daily for bowel regimen /FEN/RENAL: Acute kidney injury Monitor I/O and BMP. Replace electrolytes as indicated per ICU electrolyte placement protocol Place Jasso catheter for accurate I's and O's in a critically ill patient. Currently on LR at 100 cc an hour. We will limited 3 L and discontinue. ID: Acute community-acquired pneumonia Currently on cefepime day #1 and azithromycin day #2. Received ceftriaxone Influenza screen negative. F/u sputum culture Follow-up on urine Legionella pneumococcal antigen. Blood cultures x210 pending HEME: CBC within normal limits No indication for transfusion of blood products at this time ENDO: Acute hyperglycemia Monitor bedside glucose every 6 hours while on steroids and administer low-dose aspart insulin sliding scale as indicated. PROPH: SCDs/enoxaparin 40 mg subcu daily for DVT prophylaxis. Lansoprazole for stress ulcer prophylaxis. ACCESS: Peripheral IV providing adequate access at this time. Level 2 follow-up
--- NOTE | 2018-08-20 07:49 | P.PCN ---
Date of procedure: 08/20/18 Pre-op diagnosis: Acute respiratory failure Post-op diagnosis: same Procedure: DATE: 08/20/2018 PROCEDURE: Orotracheal intubation INDICATION: Acute respiratory failure DETAILS OF PROCEDURE The patient was placed in optimal position and preoxygenated with 100% FiO2 via bag valve mask. At the start oxygen saturation was 95 %. The patient was administered 20 mg etomidate IV and 50 mg rocuronium IV. I entered the oropharynx with a size 4 laryngoscope blade and obtained a grade 2 view of the airway. On single attempt a size 8.0 cuffed endotracheal tube was passed through the vocal cords. Correct tube location was confirmed with end tidal CO2 detector and by auscultating over bilateral lung keen. The endotracheal tube was secured with adhesive tape at a depth of 23 cm at the lips. The patient was connected to the ventilator. The patient tolerated the procedure well without any apparent complications. Oxygen saturations were maintained greater than 95% all times. STAT chest x-ray pending at time of dictation.
[2018-08-20] MEDS ORDERED: Labetalol HCl Inj 100 MG/20 ML Vial IV.PUSH PRN (08:08)
[2018-08-20] MEDS ORDERED: hydrALAZINE HCl Inj 20 MG/ML Vial IV.PUSH PRN (08:09)
[2018-08-20 08:11] LABS: ABG Base Excess -0.4 mmol/L (-2-2); ABG PCO2 45 mmHg (38-42); ABG PO2 77 mmHG (61-120)
[2018-08-20] MEDS: Chlorhexidine 0.12% Oral Kit 15 ML UDC OROPHARYNG SCH (08:39)
[2018-08-20] MEDS: Enoxaparin Inj 40 MG/0.4 ML Syringe SQ SCH (08:39)
[2018-08-20] MEDS: Carboxymethylcellulose 0.5% Opth Drops 15 ML Bottle EACH EYE SCH (08:40)
[2018-08-20] MEDS ORDERED: niCARdipine Inj 25 MG in Sodium Chlor 0.9% Inj 240 ML IV.CONT PRN (09:00)
[2018-08-20] MEDS: Propofol 1000 mg/100 ml Inj 1,000 MG/100 ML BOTTLE IV.CONT PRN ×3 (09:30→22:54)
[2018-08-20] MEDS: fentaNYL 10 mcg/mL Premix Drip 2,500 MCG/250 ML BAG IV.SIG PRN (09:30)
[2018-08-20 11:10] LABS: Troponin I 0.03 ng/mL (0.02-0.05)
--- NOTE | 2018-08-20 11:57 | US ---
EXAM DATE: 08/20/2018 11:49 AM EDT AGE/SEX: 67 years / Female INDICATIONS: Right upper quad pain. CLINICAL DATA: This is the patient's initial encounter. Patient reports that signs and symptoms have been present for 1 day and indicates a pain score of 0/10. MEDICAL/SURGICAL HISTORY: Chronic obstructive pulmonary disease. Anorexia nervosa with bulimia. ETOH abuse. Smoker. . Cosmetic surgery to arms, legs, chin. COMPARISON: No prior exams available for comparison. MEASUREMENTS: Liver:__ 18.2 cm. Common Bile Duct:__ 11mm. Right Kidney:__ 11.3 x 5.4 x 4.5 cm. FINDINGS: Liver: Increased echotexture without focal lesion or ductal dilation. Small anechoic cyst measuring 1 .8 x 1.6 x 1.6 cm in the posterior right lobe of the liver. Focal region of increased echogenicity in the subcapsular lateral left lobe of the liver measuring 2.5 x 1.2 x 1.7 cm. Portal Vein: Hepatopedal flow seen in portal vein. Common Duct: Common bile duct is distended without intraluminal filling defect. Gallbladder: Trace pericholecystic fluid with mild gallbladder wall thickening. No gallstones or son ographic Holcomb sign. Pancreas: The visualized portions are within normal limits Right Kidney: Normal echotexture and cortical thickness. No mass or hydronephrosis. Other: Trace ascites CONCLUSION: 1. Hepatomegaly with increased hepatic echogenicity consistent with hepatic steatosis versus medical liver disease. 2. There is a 2.5 cm subcapsular hyperechoic left lobe mass which may reflect focal fatty change or hemangioma. However given history of EtOH, recommend multiphase CT liver mass protocol on an outpatie nt basis for better evaluation. 3. Common bile duct is dilated up to 11 mm without definite etiology on ultrasound exam. Consider MR CP examination for further evaluation. 4. Gallbladder wall thickening and trace pericholecystic fluid. These findings are commonly seen in the setting of chronic liver disease but limit sonographic evaluation for acute acalculus cholecystit is. 5. Trace ascites. Electronically signed by: Alireza Venegas MD 08/20/2018 11:56 AM EDT
[2018-08-20] MEDS: Multivitamin Inj 10 ML, Thiamine Inj 100 MG, Folic Acid Inj 1 MG in Sodium Chlor 0.9% I... IV.SIG SCH (13:05)
[2018-08-20] MEDS: Beneprotein Powder Packet G-TUBE SCH ×3 (13:06→17:12)
[2018-08-20] MEDS: Senna/Docusate Sodium 8.6/50 MG Tablet PO SCH ×2 (13:06→22:54)
[2018-08-20] MEDS: Oral Hygiene Kit OROPHARYNG SCH ×2 (13:07→17:12)
--- NOTE | 2018-08-20 13:22 | ECHRPT ---
Indication: Shortness of Breath CONCLUSIONS The left ventricular systolic function is low normal with an estimated ejection fraction in the rang e of 50- 55%. Wall thickness is normal. Normal left ventricular size. Mitral annular calcification is present. Trace mitral valve regurgitation. Aortic valve sclerosis is present. There is trace tricuspid valve regurgitation. The estimated pulmonary arterial pressure is 31.9 mmHg. BP: / HR: Rhythm: Sinus MEASUREMENTS (Male / Female) Normal Values Technical Quality:Fair 2D ECHO LV Diastolic Diameter PLAX 4.5 cm 4.2 - 5.9 / 3.9 - 5.3 cm LV Systolic Diameter PLAX 3.3 cm IVS Diastolic Thickness 0.8 cm 0.6 - 1.0 / 0.6 - 0.9 cm LVPW Diastolic Thickness 0.8 cm 0.6 - 1.0 / 0.6 - 0.9 cm LV Relative Wall Thickness 0.3 RV Internal Dim ED PLAX 2.5 cm LVOT Diameter 2.0 cm LA Systolic Diameter LX 3.7 cm 3.0 - 4.0 / 2.7 - 3.8 cm M-MODE Aortic Root Diameter MM 2.3 cm LA Systolic Diameter MM 3.7 cm LA Ao Ratio MM 1.6 AV Cusp Separation MM 1.8 cm DOPPLER AV Peak Velocity 126.0 cm/s AV Peak Gradient 6.4 mmHg LVOT Peak Velocity 91.6 cm/s LVOT Peak Gradient 3.4 mmHg AV Area Cont Eq pk 2.3 cm MV Area PHT 3.6 cm Mitral E Point Velocity 80.6 cm/s Mitral A Point Velocity 129.0 cm/s Mitral E to A Ratio 0.6 LV E' Lateral Velocity 7.5 cm/s Mitral E to LV E' Lateral Ratio 10.7 LV E' Septal Velocity 8.9 cm/s Mitral E to LV E' Septal Ratio 9.1 TR Peak Velocity 234.0 cm/s TR Peak Gradient 21.9 mmHg Right Atrial Pressure 10.0 mmHg Pulmonary Artery Systolic Pressu 31.9 mmHg Right Ventricular Systolic Press 31.9 mmHg FINDINGS LEFT VENTRICLE The left ventricular systolic function is low normal with an estimated ejection fraction in the rang e of 50- 55%. Wall thickness is normal. Normal left ventricular size. RIGHT VENTRICLE Normal right ventricular size and systolic function. LEFT ATRIUM The left atrial size is normal. RIGHT ATRIUM The right atrial size is normal. ATRIAL SEPTUM Normal atrial septal thickness without atrial level shunting by limited color doppler interrogation. AORTA The aortic root and proximal ascending aorta are normal in size on limited imaging. MITRAL VALVE Mitral annular calcification is present. Trace mitral valve regurgitation. AORTIC VALVE Trileaflet aortic valve. Aortic valve sclerosis is present. TRICUSPID VALVE Structurally normal tricuspid valve. There is trace tricuspid valve regurgitation. The estimated pulmonary arterial pressure is 31.9 mmHg. PULMONARY VALVE No pulmonary valve regurgitation or stenosis. VESSELS The inferior vena cava is normal in size. PERICARDIUM No pericardial effusion. Chrissie Kang MD, FACC (Electronically Signed) Final Date:20 August 2018 13:21
--- NOTE | 2018-08-20 13:38 | XR ---
EXAM DATE: 08/20/2018 1:31 PM EDT AGE/SEX: 67 years / Female INDICATIONS: NG tube placement. CLINICAL DATA: This is the patient's initial encounter. Patient reports that signs and symptoms have been present for 1 day and indicates a pain score of Nonresponsive. MEDICAL/SURGICAL HISTORY: . Chronic obstructive pulmonary disease. Anorexia nervosa with bulimi a. ETOH abuse. Smoker. . Cosmetic surgery to arms, legs, chin. . COMPARISON: [facility], CHEST 1V SINGLE AP, 08/20/2018. . FINDINGS: Bibasilar patchiness is noted consistent with probable pneumonia. Clinical correlation is recommended . The heart is stable. Endotracheal tube has its tip 3 cm above the pineda. A nasogastric tube tip is below the diaphragm. CONCLUSION: 1. Basilar patchiness consistent with probable pneumonia. Clinical correlation is recommended. 2. Nasogastric tube has its tip in the stomach. Electronically signed by: Kyle Spicer MD 08/20/2018 1:37 PM EDT
[2018-08-20] MEDS ORDERED: Midazolam Inj 5 MG/ML 1 ML Vial ONE (15:34)
--- NOTE | 2018-08-20 15:43 | P.PCN ---
Date of procedure: 08/20/18 Pre-op diagnosis: Acute respiratory failure/cuff leak Post-op diagnosis: same Procedure: DATE: 08/20/2018 PROCEDURE: Orotracheal intubation INDICATION: Cuff leak DETAILS OF PROCEDURE The patient was placed in optimal position and preoxygenated with 100% FiO2 via bag valve mask. At the start oxygen saturation was 100 %. The patient was administered 2 mg of midazolam IV and 50 mg rocuronium IV. I entered the oropharynx with a size 3 laryngoscope blade and obtained a grade 3 view of the airway. On single attempt a size 8.5 cuffed endotracheal tube was passed through the vocal cords. Correct tube location was confirmed with end tidal CO2 detector and by auscultating over bilateral lung keen. The endotracheal tube was secured with adhesive tape at a depth of 25 cm at the lips. The patient was connected to the ventilator. The patient tolerated the procedure well without any apparent complications. Oxygen saturations were maintained greater than 95% all times. STAT chest x-ray pending at time of dictation.
--- NOTE | 2018-08-20 16:09 | XR ---
EXAM DATE: 08/20/2018 4:04 PM EDT AGE/SEX: 67 years / Female INDICATIONS: ET tube exchange. CLINICAL DATA: This is the patient's subsequent encounter. Patient reports that signs and symptoms h ave been present for 2 days and indicates a pain score of Nonresponsive. MEDICAL/SURGICAL HISTORY: . Chronic obstructive pulmonary disease. Anorexia nervosa with bulimi a. ETOH abuse. Smoker. . Cosmetic surgery to arms, legs, chin. . COMPARISON: [facility], CHEST 1V SINGLE AP, 08/20/2018. . FINDINGS: Endotracheal tube in good position. NG enters stomach. Bilateral mostly basilar airspace consolidatio n, left greater than right. No significant effusion. No pneumothorax. CONCLUSION: Endotracheal tube and nasogastric tube in good position. Basilar airspace disease similar to earlier examination. Electronically signed by: Hunter Georges MD 08/20/2018 4:08 PM EDT
[2018-08-20] MEDS: Azithromycin Inj 500 MG in Sodium Chlor 0.9% Inj 250 ML IV.SIG SCH (22:52)
--- NOTE | 2018-08-21 00:35 | ECG ---
Date Performed: 08/19/2018 Time Performed: 17:22:45 PTAGE: 89 years EKG: SUPRAVENTRICULAR RHYTHM NONSPECIFIC ST & T-WAVE ABNORMALITY BORDERLINE ECG NO PREVIOUS TRACING DOCTOR: Edu Prater Interpretating Date/Time 08/21/2018 00:34:22
[2018-08-21] MEDS: Insulin NovoLOG Aspart Correctional Sugar Inj SQ SCH ×4 (00:41→19:12)
[2018-08-21] MEDS: fentaNYL 10 mcg/mL Premix Drip 2,500 MCG/250 ML BAG IV.SIG PRN (02:10)
[2018-08-21] MEDS: Propofol 1000 mg/100 ml Inj 1,000 MG/100 ML BOTTLE IV.CONT PRN ×2 (02:10→09:15)
--- NOTE | 2018-08-21 05:13 | XR ---
EXAM DATE: 08/21/2018 4:46 AM EDT AGE/SEX: 67 years / Female INDICATIONS: Shortness of breath, possible pulmonary disease. CLINICAL DATA: This is the patient's subsequent encounter. Patient reports that signs and symptoms h ave been present for 2 days and indicates a pain score of Nonresponsive. MEDICAL/SURGICAL HISTORY: Chronic obstructive pulmonary disease. Anorexia. ETOH abuse. None. COMPARISON: [facility], CHEST 1V SINGLE AP, 08/20/2018. . FINDINGS: ET tube tip well above the pineda. Gastric tube projects within the stomach. Bilateral airspace conso lidative infiltrates, left greater than right, stable in severity when compared to prior. Upper lungs are clear. The heart is normal in size. CONCLUSION: Stable bibasilar partially consolidative infiltrates, left greater than right. Electronically signed by: Steven Kenny MD 08/21/2018 5:12 AM EDT
[2018-08-21 06:35] LABS: ABG Base Excess -2.5 mmol/L (-2-2); ABG PCO2 47 mmHg (38-42); ABG PO2 75 mmHG (61-120)
[2018-08-21 07:35] LABS: Albumin 1.7 g/dL (3.4-5.0); Calcium 7.1 mg/dL (8.5-10.1); Carbon Dioxide 23.8 meq/L (21.0-32.0); Phosphorus 1.8 mg/dL (2.5-4.9); Total Protein 5.1 g/dL (6.4-8.2)
[2018-08-21 07:44] LABS: Baso % (Auto) 0.3 % (0.0-2.0); Eos % (Auto) 0.1 % (0.0-4.0); Hematocrit 34.2 % (35.0-46.0); Hemoglobin 11.9 gm/dL (11.6-15.3); Lymph # (Auto) 0.2 th/mm3 (1.0-4.8); Lymph % (Auto) 2.2 % (9.0-44.0); Mean Corpuscular HGB Conc 34.7 % (32.0-36.0); Mean Corpuscular Hemoglobin 33.4 pg (27.0-34.0); Mean Corpuscular Volume 96.3 fL (80.0-100.0); Mono # (Auto) 0.4 th/mm3 (0.0-0.9); Mono % (Auto) 5.3 % (0.0-8.0); Neut # (Auto) 7.1 th/mm3 (1.8-7.7); Neut % (Auto) 92.1 % (16.0-70.0); Red Blood Count 3.56 mil/mm3 (4.00-5.30); Red Cell Distribution Width 16.8 % (11.6-17.2)
[2018-08-21 07:45] LABS: Magnesium 1.9 mg/dL (1.5-2.5); Mean Platelet Volume 10.3 fL (7.0-11.0); Platelet Count 143 th/mm3 (150-450); Potassium 3.7 meq/L (3.5-5.1); White Blood Count 8.3 th/mm3 (4.0-11.0)
[2018-08-21] MEDS: Chlorhexidine 0.12% Oral Kit 15 ML UDC OROPHARYNG SCH ×3 (08:04→19:58)
[2018-08-21] MEDS: Carboxymethylcellulose 0.5% Opth Drops 15 ML Bottle EACH EYE SCH ×3 (08:04→20:02)
[2018-08-21] MEDS: Oral Hygiene Kit OROPHARYNG SCH ×4 (08:04→23:03)
[2018-08-21] MEDS: Chlorhexidine Gluconate 2% 1 Pack (2 Cloths) TOPICAL SCH (08:05)
[2018-08-21] MEDS: MethylPREDNISolone Sod Succinate Inj 125 MG/2 ML Vial IV.PUSH SCH ×3 (08:54→23:02)
[2018-08-21] MEDS: Beneprotein Powder Packet G-TUBE SCH ×3 (08:54→17:59)
[2018-08-21] MEDS: Enoxaparin Inj 40 MG/0.4 ML Syringe SQ SCH (08:55)
[2018-08-21] MEDS: Senna/Docusate Sodium 8.6/50 MG Tablet PO SCH ×2 (09:04→19:59)
[2018-08-21] MEDS: Multivitamin Inj 10 ML, Thiamine Inj 100 MG, Folic Acid Inj 1 MG in Sodium Chlor 0.9% I... IV.SIG SCH (09:14)
[2018-08-21 09:56] LABS: Lymphocytes 4 % (9-44); Monocytes 5 % (0-8); Promyelocyte 1 % (0-0); Tallied Nucleated RBC 1 (0-0)
[2018-08-21 09:58] LABS: Platelet Morphology Normal (Normal)
--- NOTE | 2018-08-21 11:30 | CT ---
EXAM DATE: 08/21/2018 11:19 AM EDT AGE/SEX: 67 years / Female INDICATIONS: Seizure CLINICAL DATA: This is the patient's initial encounter. Patient reports that signs and symptoms have been present for 1 day and indicates a pain score of Nonresponsive. MEDICAL/SURGICAL HISTORY: Chronic obstructive pulmonary disease. None. RADIATION DOSE: 33.10 CTDI (mGy) COMPARISON: [facility] – [place], CT HEAD W/O CONTRAST, 08/19/2018. . TECHNIQUE: CT of the head without contrast. Using automated exposure control and adjustment of the mA and/or kV according to patient size, radiation dose was kept as low as reasonably achievable to ob tain optimal diagnostic quality images. DICOM format image data is available electronically for revi ew and comparison. FINDINGS: Cerebrum: There is mild generalized atrophy and ventricles are normal given the degree of atrophy. No midline shift, mass lesion, hemorrhage or acute infarction. No extraaxial fluid collections are s een. Posterior Fossa: The cerebellum and brainstem demonstrate no acute abnormality. The 4th ventricle is midline. The cerebellopontine angle is within normal limits. Extracranial: The visualized sinuses are clear. Skull: The calvaria is intact. No skull fracture. CONCLUSION: Stable noncontrast head CT. No acute intracranial abnormality is identified. . Electronically signed by: Reno Aparicio MD 08/21/2018 11:29 AM EDT
--- NOTE | 2018-08-21 11:31 | P.DIET ---
Nutritional Evaluation Type of nutrition evaluation: initial Nutrition consult regarding: Tube Feeding Objective - Diagnosis Resp Failure, Pneumonia, Sepsis - Objective % IBW: 114 Body Weight Used for Calculations: Actual (56.9kg(125-lb)) Energy Needs - Lower Range (kCal/kg): 25 Energy Needs - Upper Range (kCal/kg): 30 Lower Limit kCal/kg (kCals): 1,423 Upper Limit kCal/kg (kCals): 1,707 Lower Limit Protein Factor (Grams per Kg): 1.1 Upper Limit Protein Factor (Grams per Kg): 1.4 Lower Protein Needs (Protein): 63 Upper Protein Needs (Protein): 80 Dietitian Reviewed in Medical Record: Curent medications, Intake & Output, Labs , Medical history, Tube feeding Diet Order: TF'ing Glucerna 1.5 @ goal rate 50ml/hr Objective Comments: PMH includes: Anorexia Nervosa w/Bulimia, COPD, h/o Alcohol Abuse, Smoker Labs include: Na 135, Glucose 134, POC Glucose 170, A1C pending, Phosphorus 1.8 Meds Include: Thiamine, Theragran, Folic Acid, Prevacid, Novolin, Zofran, Beneprotein TID, Propofol LBM 08/20 Assessment Assessment: Pt is at nutritional risk r/t need for TF'ing. To best meet pt's assessed needs for TF'ing w/Glucerna 1.5, Rec a goal rate @ 45ml/hr to offer 1620 kcal, 89g protein and 820ml free water. Rec to Discontinue the Beneprotein. Propofol provides some additional kcals(1.1 kcal/ml)when running. Labs/electrolytes reviewed. Additional Rec r/t Clinical Course. Recommendations: 1. To best meet pt's assessed needs for TF'ing w/Glucerna 1.5, Rec a goal rate @ 45ml/hr 2. Rec to Discontinue the Beneprotein 3. Propofol provides some additional kcals(1.1 kcal/ml)when running 4. Additional Rec r/t Clinical Course Dietitian to Monitor: Lab values, Electrolytes, Glucose level, Intake & Output, Tube feeding tolerance, Weight change, Medical course
--- NOTE | 2018-08-21 12:06 | P.PNCC ---
Subjective Subjective Remarks/Hospital Course: 67-year-old female who came in as a Jeimy Ramos. Her name is Meche Osorio and she does not have any prior visits to [facility]. She has PMH of COPD , ongoing tobacco abuse, anorexia/bulemia (participates in induced vomiting), EtOH abuse but reportedly abstaining for the last 2-3 months. She lives alone in a condominium and has reportedly been short of breath for several days. Condo residents have noticed that she has had confusion and lethargy. She was found in her condo on the floor near a sink, soiled with feces. She has had a productive cough without fever or chills. Denies chest pain. She states she does not have inhalers/nebs at home and her friend states "she avoids going to the doctor and does not have a PCP". She was in respiratory distress with audible wheezing and EVAC administered Solu-Medrol, DuoNeb x1 and albuterol neb x2 prior to arrival. When she arrived in the ED ABG was obtained on 4-5 L nasal cannula and pH was 7.20/PaCO2 of 74/PaO2 of 78/bicarb 28. She was placed on BiPAP 07/29. She was given albuterol nebs x3. Repeat ABG was pretty similar. Chest x-ray demonstrated bibasilar opacities. Blood cultures have been obtained and she has received Rocephin, azithromycin, 2 L normal saline bolus in the emergency department. 08/20: Patient was orotracheally intubated this a.m. due to altered mental status/ABGs. Currently resting in bed in no acute distress. NG tube replaced and we placed on propofol and fentanyl drips. Will initiate tube feeding. SUBJECTIVE: 08/21: Patient clenched down on sedation vacation this a.m. CT brain revealed no acute intracranial findings. EEG with similar findings with patient clenched an ET tube with no signs of epileptiform activity per preliminary read. We will try to use dexamphetamine attempt to wean. Liver ultrasound reviewed. Plan for MRCP today. Hepatitis panel pending. Beta C antibody negative. Tolerating tube feeding. Objective Vital Signs / I&O: Vital Signs 08/20/18 12:15 08/20/18 12:30 08/20/18 12:45 Temperature Pulse Rate 70 70 70 Respiratory Rate 16 16 16 Blood Pressure 134/68 136/70 133/69 Pulse Oximetry 95 95 95 08/20/18 13:00 08/20/18 13:15 08/20/18 13:30 Temperature Pulse Rate 73 72 71 Respiratory Rate 33 H 32 H 16 Blood Pressure 130/69 126/66 133/65 Pulse Oximetry 94 L 95 95 08/20/18 13:45 08/20/18 14:00 08/20/18 14:15 Temperature Pulse Rate 70 68 67 Respiratory Rate 17 16 16 Blood Pressure 134/64 131/69 128/69 Pulse Oximetry 95 95 94 L 08/20/18 14:30 08/20/18 14:45 08/20/18 14:49 Temperature Pulse Rate 66 61 70 Respiratory Rate 16 15 17 Blood Pressure 126/68 138/75 Pulse Oximetry 94 L 95 08/20/18 15:00 08/20/18 15:15 08/20/18 15:30 Temperature Pulse Rate 65 67 69 Respiratory Rate 16 16 16 Blood Pressure 114/60 111/57 L 115/60 Pulse Oximetry 95 98 95 08/20/18 15:37 08/20/18 15:40 08/20/18 15:42 Temperature Pulse Rate 65 72 72 Respiratory Rate 16 16 16 Blood Pressure 113/59 L 145/72 H 139/68 Pulse Oximetry 100 100 100 08/20/18 15:44 08/20/18 15:45 08/20/18 15:47 Temperature Pulse Rate 74 74 Respiratory Rate 16 16 16 Blood Pressure 138/68 138/66 Pulse Oximetry 97 99 98 08/20/18 15:50 08/20/18 15:52 08/20/18 15:55 Temperature Pulse Rate 74 74 74 Respiratory Rate 17 16 16 Blood Pressure 135/69 132/70 136/69 Pulse Oximetry 97 96 96 08/20/18 15:57 08/20/18 16:00 08/20/18 16:02 Temperature Pulse Rate 74 73 73 Respiratory Rate 16 16 16 Blood Pressure 132/67 130/67 129/69 Pulse Oximetry 96 95 95 08/20/18 16:05 08/20/18 16:07 08/20/18 16:10 Temperature Pulse Rate 73 72 72 Respiratory Rate 16 16 16 Blood Pressure 129/58 L 129/64 124/65 Pulse Oximetry 95 95 94 L 08/20/18 16:12 08/20/18 16:15 08/20/18 16:17 Temperature Pulse Rate 72 72 72 Respiratory Rate 16 16 16 Blood Pressure 131/67 122/65 123/64 Pulse Oximetry 94 L 94 L 94 L 08/20/18 16:20 08/20/18 16:22 08/20/18 17:00 Temperature Pulse Rate 71 71 69 Respiratory Rate 16 16 16 Blood Pressure 119/63 122/65 124/64 Pulse Oximetry 94 L 94 L 94 L 08/20/18 17:02 08/20/18 17:05 08/20/18 17:07 Temperature Pulse Rate 68 69 69 Respiratory Rate 16 16 16 Blood Pressure 120/59 L 119/62 119/62 Pulse Oximetry 93 L 93 L 93 L 08/20/18 17:10 08/20/18 17:12 08/20/18 17:15 Temperature Pulse Rate 68 69 68 Respiratory Rate 16 16 16 Blood Pressure 117/60 117/60 116/60 Pulse Oximetry 93 L 93 L 93 L 08/20/18 17:17 08/20/18 17:20 08/20/18 17:22 Temperature Pulse Rate 69 68 67 Respiratory Rate 16 16 16 Blood Pressure 115/60 117/61 118/60 Pulse Oximetry 93 L 93 L 93 L 08/20/18 17:25 08/20/18 17:27 08/20/18 17:30 Temperature Pulse Rate 68 67 67 Respiratory Rate 16 16 16 Blood Pressure 115/61 113/62 115/62 Pulse Oximetry 93 L 93 L 93 L 08/20/18 17:32 08/20/18 17:35 08/20/18 17:37 Temperature Pulse Rate 68 67 67 Respiratory Rate 16 16 16 Blood Pressure 117/63 118/63 121/61 Pulse Oximetry 93 L 93 L 93 L 08/20/18 17:40 08/20/18 17:42 08/20/18 17:45 Temperature Pulse Rate 68 67 66 Respiratory Rate 16 16 16 Blood Pressure 120/64 122/63 123/62 Pulse Oximetry 93 L 93 L 93 L 08/20/18 17:47 08/20/18 17:50 08/20/18 17:53 Temperature Pulse Rate 67 66 67 Respiratory Rate 16 16 16 Blood Pressure 122/60 119/64 124/59 L Pulse Oximetry 93 L 93 L 93 L 08/20/18 17:55 08/20/18 17:57 08/20/18 18:00 Temperature Pulse Rate 67 66 66 Respiratory Rate 16 16 16 Blood Pressure 121/59 L 118/59 L 118/61 Pulse Oximetry 93 L 93 L 93 L 08/20/18 20:00 08/20/18 20:40 08/20/18 20:42 Temperature Pulse Rate 59 L 58 L Respiratory Rate 16 16 Blood Pressure 116/59 L 116/60 Pulse Oximetry 95 94 L 94 L 08/20/18 20:45 08/20/18 20:47 08/20/18 20:50 Temperature Pulse Rate 59 L 57 L 58 L Respiratory Rate 16 16 16 Blood Pressure 115/59 L 114/61 113/61 Pulse Oximetry 94 L 94 L 94 L 08/20/18 20:52 08/20/18 20:55 08/20/18 20:57 Temperature Pulse Rate 58 L 58 L 58 L Respiratory Rate 16 16 16 Blood Pressure 117/62 119/62 119/59 L Pulse Oximetry 94 L 94 L 94 L 08/20/18 21:00 08/20/18 21:03 08/20/18 21:05 Temperature Pulse Rate 58 L 58 L 58 L Respiratory Rate 16 16 16 Blood Pressure 117/58 L 118/57 L 123/57 L Pulse Oximetry 94 L 94 L 94 L 08/20/18 21:08 08/20/18 21:09 08/20/18 21:10 Temperature Pulse Rate 57 L 58 L Respiratory Rate 16 16 16 Blood Pressure 121/59 L 121/64 Pulse Oximetry 94 L 94 L 94 L 08/20/18 21:12 08/20/18 21:13 08/20/18 21:15 Temperature Pulse Rate 58 L 58 L 54 L Respiratory Rate 16 16 16 Blood Pressure 122/64 121/59 L Pulse Oximetry 94 L 97 08/20/18 21:17 08/20/18 21:20 08/20/18 21:22 Temperature Pulse Rate 56 L 57 L 58 L Respiratory Rate 16 16 16 Blood Pressure 120/64 121/68 121/65 Pulse Oximetry 98 97 96 08/20/18 21:25 08/20/18 21:27 08/20/18 21:30 Temperature Pulse Rate 57 L 59 L 58 L Respiratory Rate 16 16 16 Blood Pressure 114/59 L 112/60 114/60 Pulse Oximetry 96 96 95 08/20/18 21:32 08/20/18 22:00 08/20/18 22:30 Temperature Pulse Rate 59 L 60 58 L Respiratory Rate 16 16 16 Blood Pressure 116/59 L 115/61 121/67 Pulse Oximetry 95 95 95 08/20/18 23:00 08/21/18 00:00 08/21/18 00:36 Temperature 98.2 F Pulse Rate 56 L 58 L 54 L Respiratory Rate 16 16 16 Blood Pressure 126/68 148/68 H Pulse Oximetry 95 95 08/21/18 00:38 08/21/18 01:00 08/21/18 02:00 Temperature Pulse Rate 55 L 54 L Respiratory Rate 16 16 18 Blood Pressure 155/71 H 130/73 Pulse Oximetry 98 96 08/21/18 03:00 08/21/18 04:00 08/21/18 04:02 Temperature 97 F L Pulse Rate 52 L 50 L 52 L Respiratory Rate 16 16 16 Blood Pressure 149/70 H 149/67 H Pulse Oximetry 98 96 100 08/21/18 05:00 08/21/18 06:00 08/21/18 07:00 Temperature 97 F L Pulse Rate 54 L 52 L 66 Respiratory Rate 16 16 16 Blood Pressure 153/70 H 149/70 H 130/61 Pulse Oximetry 96 98 98 08/21/18 07:19 08/21/18 07:20 08/21/18 09:00 Temperature Pulse Rate 57 L 68 Respiratory Rate 17 16 Blood Pressure Pulse Oximetry 08/21/18 10:42 08/21/18 10:47 Temperature Pulse Rate 110 H Respiratory Rate 16 16 Blood Pressure Pulse Oximetry 93 L Intake & Output 08/20/18 08/21/18 08/21/18 18:59 06:59 18:59 Intake Total 2711.2 / 2711.2 1945 / 1945 1450 / 1450 Output Total 800 / 800 350 / 350 Balance 1911.2 / 1911.2 1595 / 1595 1450 / 1450 Weight 61 kg Intake: IV 2711.2 / 2711.2 450 / 450 1450 / 1450 LR 1000 mL Inj 1,000 ML @ 100 2000 / 2000 1000 / 1000 mls/hr IV.CONT .Q10H [facility] Rx#: [id number] Diprivan 1000 mg/100 ml Inj 1, 100 / 100 200 / 200 100 / 100 000 mg In 100 ml @ 5 MCG/KG/MIN 1.764 mls/hr IV.CONT TITRATE PRN Rx#:[id number] Azithromycin Inj 500 MG In NS 250 / 250 Inj 250 ML @ 250 mls/hr IV.SIG Q24H [facility] Rx#:[id number] Maxipime Inj 2,000 MG In NS Inj 100 / 100 100 / 100 100 ML @ 200 mls/hr IV.SIG Q12H [facility] Rx#:[id number] MVI-12 Inj 10 ML Thiamine Inj 511.2 / 511.2 100 MG Folvite Inj 1 MG In NS Inj 500 ML @ 127.8 mls/hr IV. SIG DAILY [facility] Rx#:[id number] fentaNYL 10 mcg/mL Premix Drip 250 / 250 2,500 mcg In 250 ml @ 50 MCG/HR 5 mls/hr IV.SIG TITRATE PRN Rx #:[id number] Tube Feeding 100 / 100 Other 1395 / 1395 Output: Urine 800 / 800 350 / 350 Other: Date of Last Bowel Movement 08/20/18 08/20/18 Result Diagrams: 08/21/18 04:35 08/21/18 04:35 Other Results: Microbiology 08/19/18 16:05 Blood - Peripheral Aerobic Blood Culture - Preliminary No growth in 2 days 08/19/18 16:05 Blood - Peripheral Anaerobic Blood Culture - Preliminary No growth in 2 days 08/19/18 16:00 Blood - Peripheral Aerobic Blood Culture - Preliminary No growth in 2 days 08/19/18 16:00 Blood - Peripheral Anaerobic Blood Culture - Preliminary No growth in 2 days 08/20/18 16:50 Urine - Catheterized Urine Streptococcus pneumoniae Antigen ( M - Final Presumptive negative for streptococcus pneumoniae antigen, suggesting no current or recent infection. Infection due to Streptococcus pneumoniae cannot be ruled out since the antigen present in the sample may be below the detection limit of the test. 08/20/18 16:50 Urine - Catheterized Urine Legionella Antigen - Final Presumptive negative for Legionella pneumophila serogroup 1 antigen in urine, suggesting no recent or recurrent infection. Infection due to Legionella cannot be ruled out since other serogroups and species may cause disease, antigen may not be present in urine in early infection, and the level of antigen present in the urine may be below the detection limit of the test. 08/20/18 16:50 Sputum - Endotracheal Gram Stain - Final 08/19/18 16:00 Nasal Wash Influenza Types A,B Antigen - Final Negative for FLU A and B antigen Infection due to influenza A or B cannot be ruled out since the antigen present in the sample may be below the detection limit of the test. Imaging: Head CT 08/19/18 00:00 CONCLUSION: 1. Senescent changes without acute intracranial abnormality. . Chest X-Ray 08/19/18 15:51 CONCLUSION: Patchy basilar airspace disease most characteristic of bronchopneumonia. Liver Ultrasound 08/20/18 00:00 CONCLUSION: 1. Hepatomegaly with increased hepatic echogenicity consistent with hepatic steatosis versus medical liver disease. 2. There is a 2.5 cm subcapsular hyperechoic left lobe mass which may reflect focal fatty change or hemangioma. However given history of EtOH, recommend multiphase CT liver mass protocol on an outpatient basis for better evaluation. 3. Common bile duct is dilated up to 11 mm without definite etiology on ultrasound exam. Consider MRCP examination for further evaluation. 4. Gallbladder wall thickening and trace pericholecystic fluid. These findings are commonly seen in the setting of chronic liver disease but limit sonographic evaluation for acute acalculus cholecystitis. 5. Trace ascites. Chest X-Ray 08/20/18 07:00 CONCLUSION: 1. Endotracheal tube is in appropriate position with tip approximately 4 cm from the pineda. 2. Stable bibasilar airspace consolidation, left greater than right. Chest X-Ray 08/20/18 13:10 CONCLUSION: 1. Basilar patchiness consistent with probable pneumonia. Clinical correlation is recommended. 2. Nasogastric tube has its tip in the stomach. Chest X-Ray 08/20/18 15:42 CONCLUSION: Endotracheal tube and nasogastric tube in good position. Basilar airspace disease similar to earlier examination. Chest X-Ray 08/21/18 06:00 CONCLUSION: Stable bibasilar partially consolidative infiltrates, left greater than right. Head CT 08/21/18 06:04 CONCLUSION: Stable noncontrast head CT. No acute intracranial abnormality is identified. . Objective Remarks: GENERAL: 67-year-old female currently orotracheally intubated SKIN: Warm and dry. No rash HEAD: Atraumatic. Normocephalic. EYES: Pupils equal and round. No scleral icterus. No injection or drainage. ENT: No nasal bleeding or discharge. Mucous membranes pink and moist. NECK: Trachea midline. No JVD. CARDIOVASCULAR: Regular rate and rhythm. S1, S2. No S4. Without murmur RESPIRATORY: Coarse rhonchorous breath sounds appreciated bilaterally. No wheezing. GASTROINTESTINAL: Abdomen soft, non-tender, nondistended. Hypoactive bowel sounds appreciated. MUSCULOSKELETAL: Extremities without significant peripheral edema. No obvious deformities. NEUROLOGICAL: No obvious cranial nerve deficits. Currently sedated on the ventilator on propofol/fentanyl drips. Withdraws to pain. Positive gag and cough.. Assessment and Plan - Problem List (1) Community acquired pneumonia Code(s): J18.9 - Pneumonia, unspecified organism Status: Acute (2) Hypercapnic respiratory failure Code(s): J96.92 - Respiratory failure, unspecified with hypercapnia Status: Acute (3) COPD exacerbation Code(s): J44.1 - Chronic obstructive pulmonary disease with (acute) exacerbation Status: Acute (4) Tobacco abuse Code(s): Z72.0 - Tobacco use Status: Chronic (5) Anorexia nervosa with bulimia Code(s): F50.02 - Anorexia nervosa, binge eating/purging type Status: Chronic (6) EZEQUIEL (acute kidney injury) Code(s): N17.9 - Acute kidney failure, unspecified Status: Acute (7) Encephalopathy acute Code(s): G93.40 - Encephalopathy, unspecified Status: Acute (8) History of ETOH abuse Code(s): Z87.898 - Personal history of other specified conditions Status: Chronic (9) Hyperphosphatemia Code(s): E83.39 - Other disorders of phosphorus metabolism Status: Acute - Assessment and Plan Plan: Plan: NEURO/Psych: Acute encephalopathy secondary to hypercapnia History of alcohol dependence Currently on propofol/fentanyl drips for sedation/analgesia while intubated Will utilize dexmedetomidine drip to wean Goal of RASS -2 Daily sedation vacation Monitor for signs and symptoms of alcohol withdrawal. Multivitamin/folate acid/thiamine Acetaminophen 650 g per tube every 6 hours as needed fever CT brain 08/13 revealed no acute intracranial findings. EEG results pending RESP: Acute hypercapnic respiratory failure Acute COPD exacerbation Acute community-acquired pneumonia Ongoing tobacco abuse [facility] 16/500/10/29/39 Ventilator bundle Albuterol/ipratropium aerosols every 4 hours with albuterol aerosols every 2 hours as needed for dyspnea Budesonide 0.5/2 1 inhalation twice daily Methylprednisolone succinate 40 mg IV every 8 hours Tobacco cessation counseling discussed per note of overnight sheep boner. Follow-up on chest x-ray in 08/22 a.m. CV: Elevated troponin Essential hypertension Troponin is downward trending. Likely secondary to demand ischemia secondary to hypoxia/hypercapnia. Follow-up on 2D echocardiogram As needed labetalol/hydralazine/Nitropaste GI: History of anorexia/bulimia Chronic mild protein energy malnutrition hypoalbuminemia Elevated transaminases Initiate tube feedings with Glucerna 1.5 goal 45 cc an hour per nutrition's recommendations Liver ultrasound revealed. Hepatomegaly with increased hepatic echogenicity consistent with hepatic steatosis versus medical liver disease. 2.5 cm subcapsular hyperechoic left lobe mass which may reflect focal fatty change or hemangioma. Common bile duct is dilated up to 11 mm without definite etiology on ultrasound exam. Consider MRCP examination for further evaluation.Gallbladder wall thickening and trace pericholecystic fluid. These findings are commonly seen in the setting of chronic liver disease but limit sonographic evaluation for acute acalculus cholecystitis. Trace ascites. Lansoprazole for GI prophylaxis Docusate serum/senna 1 tablet twice daily for bowel regimen /FEN/RENAL: Acute kidney injury Hyponatremia Hypophosphatemia Monitor I/O and BMP. Replace electrolytes as indicated per ICU electrolyte placement protocol Place Jasso catheter for accurate I's and O's in a critically ill patient. Discontinue LR at 100 cc an hour after 3 L ID: Acute community-acquired pneumonia Currently on cefepime day #2 and azithromycin day #3. Received ceftriaxone Influenza screen negative. F/u sputum culture Follow-up on urine Legionella pneumococcal antigen. Blood cultures x208/[id number] pending HEME: Acute thrombocytopenia CBC within normal limits No indication for transfusion of blood products at this time ENDO: Acute hyperglycemia Monitor bedside glucose every 6 hours while on steroids and administer low-dose aspart insulin sliding scale as indicated. PROPH: SCDs/enoxaparin 40 mg subcu daily for DVT prophylaxis. Lansoprazole for stress ulcer prophylaxis. ACCESS: Peripheral IV providing adequate access at this time. Level 2 follow-up (1) Community acquired pneumonia Qualifiers: Laterality: right Lung location: lower lobe of lung Qualified Code(s): J18.1 - Lobar pneumonia, unspecified organism (2) Hypercapnic respiratory failure Qualifiers: Chronicity: acute Qualified Code(s): J96.02 - Acute respiratory failure with hypercapnia
[2018-08-21] MEDS: Dexmedetomidine Inj 200 MCG in Sodium Chlor 0.9% Inj 48 ML IV.CONT PRN ×4 (13:00→23:01)
[2018-08-21] MEDS ORDERED: Potassium Phosphate Inj 30 MMOL in Sodium Chlor 0.9% Inj 250 ML IV.SIG ONE (13:00)
[2018-08-21 13:14] LABS: Hemoglobin A1c 6.6 % (4.3-6.0)
--- NOTE | 2018-08-21 15:08 | MR ---
EXAM DATE: 08/21/2018 2:59 PM EDT AGE/SEX: 67 years / Female INDICATIONS: . Shaking. CLINICAL DATA: This is the patient's initial encounter. Patient reports that signs and symptoms have been present for 3 days and indicates a pain score of 0/10. MEDICAL/SURGICAL HISTORY: Chronic obstructive pulmonary disease. Anorexia, bulemia,ETOH None. COMPARISON: [facility] [place], [place] HEAD W/O CONTRAST, 08/21/2018. . TECHNIQUE: Multiplanar, multisequence examination of the brain was performed without contrast. FINDINGS: Cerebrum: The ventricles are normal for age. No evidence of midline shift, mass lesion, hemorrhage or acute infarction. No extraaxial fluid collections are seen. The pituitary gland and suprasellar cistern are normal in configuration. White Matter: No significant signal abnormalities are seen in the white matter. Posterior Fossa: The cerebellum and brainstem are intact. The 4th ventricle is midline. The cerebel lopontine angle is unremarkable. The cerebellar tonsils are normal in position. Diffusion Imaging: No focal areas of restricted diffusion are seen. No evidence of acute infarction . Extracranial: The visualized portions of the orbits and paranasal sinuses are unremarkable. CONCLUSION: 1. Negative MR Brain non contrast. Electronically signed by: Porfirio June MD 08/21/2018 3:07 PM EDT
[2018-08-21] MEDS: Mag Sulf 1 gm/100 ml Premix 100 ML IV.SIG SCH ×2 (15:30→17:59)
--- NOTE | 2018-08-21 15:46 | MR ---
EXAM DATE: 08/21/2018 3:28 PM EDT AGE/SEX: 67 years / Female INDICATIONS: . Liver disorder. CLINICAL DATA: This is the patient's initial encounter. Patient reports that signs and symptoms have been present for 3 days and indicates a pain score of 0/10. MEDICAL/SURGICAL HISTORY: Chronic obstructive pulmonary disease. Anorexia, bulemia,ETOH None. COMPARISON: No prior exams available for comparison. TECHNIQUE: Multiplanar, multisequence images of the abdomen were obtained without contrast including dedicated cholangiographic images. FINDINGS: There are small bilateral pleural effusions and passive atelectasis left lung base. Liver: The liver is homogeneous and normal in signal intensity with no focal defects except for 2 cm complex cystic lesion in the dome liver on the right likely benign cyst. Small amount of fluid aroun d the liver. Intrahepatic Bile Ducts: There is no intrahepatic biliary ductal dilatation. Common Bile Duct: The common bile duct is enlarged measuring between 8- 10 mm on multiple images. I do not see filling defect or obstructing pancreatic mass Gallbladder: There does appear to be some pericholecystic fluid around the gallbladder. The gallblad huyen wall is not appreciably thickened. There is some debris within the gallbladder possibly sludge.. Pancreas: The pancreas appears normal in signal with no focal parenchymal abnormalities. The pancrea tic duct is normal in caliber with no filling defects, or obstructing lesions identified. CONCLUSION: 1. The common bile duct is dilated without an obvious cause. No filling defect or pancreatic masses identified. 2. There is suspected sludge within the gallbladder. There is pericholecystic fluid but there is als o fluid around the liver and down the right paracolic gutter. 3. Small cyst dome of the liver. 4. Small pleural effusions bilaterally with some consolidation in the left lower lobe possible atele ctasis or infiltrate. Electronically signed by: Porfirio June MD 08/21/2018 3:44 PM EDT
--- NOTE | 2018-08-21 17:39 | MG ---
cc: Jhonny Son MD EEG NUMBER: [id number] FINDINGS: Hyperventilation not performed. Off sedatives. Confusion, lethargy, possible seizure. Fentanyl. Diffuse 5 Hz slowing is noted. Photic stimulation is performed without significant posterior driving. No hemisphere asymmetries are noted. No epileptiform or seizure activity is seen. IMPRESSION: Diffuse theta slowing consistent with a moderate diffuse encephalopathy, but no focal abnormality was noted. No seizure activity was seen. MD NIRAV Uriarte/sylvia , 03:40 PM , 03:43 PM
[2018-08-21 18:32] LABS: Hepatitits B Surface Antigen Nonreactive (Nonreactive)
[2018-08-21 19:00] LABS: Hepatitis A IgM Antibody Nonreactive (Nonreactive)
[2018-08-21] MEDS: Azithromycin Inj 500 MG in Sodium Chlor 0.9% Inj 250 ML IV.SIG SCH (19:58)
[2018-08-22] MEDS: Insulin NovoLOG Aspart Correctional Sugar Inj SQ SCH ×4 (00:26→18:57)
[2018-08-22] MEDS: Propofol 1000 mg/100 ml Inj 1,000 MG/100 ML BOTTLE IV.CONT PRN (00:29)
[2018-08-22] MEDS: Dexmedetomidine Inj 200 MCG in Sodium Chlor 0.9% Inj 48 ML IV.CONT PRN ×9 (01:29→22:13)
[2018-08-22] MEDS: Chlorhexidine Gluconate 2% 1 Pack (2 Cloths) TOPICAL SCH (03:51)
[2018-08-22] MEDS: Oral Hygiene Kit OROPHARYNG SCH ×3 (03:51→18:57)
--- NOTE | 2018-08-22 03:57 | XR ---
EXAM DATE: 08/22/2018 3:47 AM EDT AGE/SEX: 67 years / Female INDICATIONS: Shortness of breath, possible pulmonary disease. CLINICAL DATA: This is the patient's subsequent encounter. Patient reports that signs and symptoms h ave been present for 3 days and indicates a pain score of Nonresponsive. MEDICAL/SURGICAL HISTORY: Chronic obstructive pulmonary disease. Anorexia. None. COMPARISON: [facility] [place], CHEST 1V SINGLE AP, 08/21/2018. . FINDINGS: Patchy basilar predominant parenchymal opacities persist, not significantly changed. No pleural effus ion or pneumothorax seen. Heart size stable, within normal limits. Endotracheal tube tip is at the pineda. Nasogastric tube courses into the stomach. CONCLUSION: No significant change patchy airspace opacities primarily at the bases. Endotracheal tube tip is now at the pineda; it needs to be pulled back a couple centimeters. Electronically signed by: Reno Suggs MD 08/22/2018 3:56 AM EDT
[2018-08-22 05:10] LABS: Baso % (Auto) 0.1 % (0.0-2.0); Hematocrit 41.4 % (35.0-46.0); Hemoglobin 13.8 gm/dL (11.6-15.3); Lymph # (Auto) 0.2 th/mm3 (1.0-4.8); Lymph % (Auto) 1.9 % (9.0-44.0); Mean Corpuscular HGB Conc 33.5 % (32.0-36.0); Mean Corpuscular Hemoglobin 31.6 pg (27.0-34.0); Mean Corpuscular Volume 94.4 fL (80.0-100.0); Mean Platelet Volume 9.5 fL (7.0-11.0); Mono # (Auto) 0.6 th/mm3 (0.0-0.9); Mono % (Auto) 5.4 % (0.0-8.0); Neut # (Auto) 10.5 th/mm3 (1.8-7.7); Neut % (Auto) 92.6 % (16.0-70.0); Platelet Count 188 th/mm3 (150-450); Red Blood Count 4.38 mil/mm3 (4.00-5.30); Red Cell Distribution Width 16.9 % (11.6-17.2); White Blood Count 11.3 th/mm3 (4.0-11.0)
[2018-08-22 05:32] LABS: Calcium 8.6 mg/dL (8.5-10.1); Carbon Dioxide 23.5 meq/L (21.0-32.0); Magnesium 2.9 mg/dL (1.5-2.5); Potassium 4.9 meq/L (3.5-5.1)
[2018-08-22 05:33] LABS: Phosphorus 3.4 mg/dL (2.5-4.9)
[2018-08-22 05:37] LABS: Carcinoembryonic Antigen 4.7 ng/mL (0.2-5.0)
[2018-08-22] MEDS: MethylPREDNISolone Sod Succinate Inj 125 MG/2 ML Vial IV.PUSH SCH ×3 (06:12→22:13)
[2018-08-22 07:44] LABS: Lymphocytes 2 % (9-44); Myelocytes 1 % (0-0); Tallied Nucleated RBC 2 (0-0)
[2018-08-22 07:45] LABS: Platelet Estimate Normal (Normal); Platelet Morphology Normal (Normal); Toxic Granulation 1+
[2018-08-22 08:41] LABS: Bacteria,Urine Occasional /hpf; Bilirubin,Urine Negative (Negative); Clarity,Urine Hazy (Clear); Color,Urine Yellow (Yellw/Straw); Glucose,Urine (UA) Negative (Negative); Hyaline Casts,Urine 4 /lpf (0-3); Leukocyte Esterase,Urine Negative (Negative); Nitrite,Urine Negative (Negative); Specific Gravity,Urine 1.024 (1.002-1.035); Squamous Epithelial Cell,Urine 1 /hpf (0-5)
[2018-08-22] MEDS ORDERED: Albumin Human 5% Inj 500 ML IV.SIG ONE (09:00)
[2018-08-22] MEDS: Midazolam 50 MG/50 ML Inj 50 MG/50 ML BAG IV.CONT PRN ×2 (09:00→23:36)
[2018-08-22] MEDS: Chlorhexidine 0.12% Oral Kit 15 ML UDC OROPHARYNG SCH ×2 (09:38→20:30)
[2018-08-22] MEDS: Enoxaparin Inj 40 MG/0.4 ML Syringe SQ SCH (09:39)
[2018-08-22] MEDS: Carvedilol 6.25 MG Tablet PO SCH ×2 (09:39→20:30)
[2018-08-22] MEDS: Beneprotein Powder Packet G-TUBE SCH ×2 (09:39→19:42)
[2018-08-22] MEDS: Carboxymethylcellulose 0.5% Opth Drops 15 ML Bottle EACH EYE SCH ×2 (09:40→20:31)
[2018-08-22] MEDS: Senna/Docusate Sodium 8.6/50 MG Tablet PO SCH ×2 (09:40→20:30)
[2018-08-22] MEDS: Multivitamin Inj 10 ML, Thiamine Inj 100 MG, Folic Acid Inj 1 MG in Sodium Chlor 0.9% I... IV.SIG SCH (10:45)
--- NOTE | 2018-08-22 13:34 | P.PNCC ---
Subjective Subjective Remarks/Hospital Course: 67-year-old female who came in as a Jeimy Ramos. Her name is Meche Osorio and she does not have any prior visits to [facility]. She has PMH of COPD , ongoing tobacco abuse, anorexia/bulemia (participates in induced vomiting), EtOH abuse but reportedly abstaining for the last 2-3 months. She lives alone in a condominium and has reportedly been short of breath for several days. Condo residents have noticed that she has had confusion and lethargy. She was found in her condo on the floor near a sink, soiled with feces. She has had a productive cough without fever or chills. Denies chest pain. She states she does not have inhalers/nebs at home and her friend states "she avoids going to the doctor and does not have a PCP". She was in respiratory distress with audible wheezing and EVAC administered Solu-Medrol, DuoNeb x1 and albuterol neb x2 prior to arrival. When she arrived in the ED ABG was obtained on 4-5 L nasal cannula and pH was 7.20/PaCO2 of 74/PaO2 of 78/bicarb 28. She was placed on BiPAP 07/29. She was given albuterol nebs x3. Repeat ABG was pretty similar. Chest x-ray demonstrated bibasilar opacities. Blood cultures have been obtained and she has received Rocephin, azithromycin, 2 L normal saline bolus in the emergency department. 08/20: Patient was orotracheally intubated this a.m. due to altered mental status/ABGs. Currently resting in bed in no acute distress. NG tube replaced and we placed on propofol and fentanyl drips. Will initiate tube feeding. 08/21: Patient clenched down on sedation vacation this a.m. CT brain revealed no acute intracranial findings. EEG with similar findings with patient clenched an ET tube with no signs of epileptiform activity per preliminary read. We will try to use dexamphetamine attempt to wean. Liver ultrasound reviewed. Plan for MRCP today. Hepatitis panel pending. Beta C antibody negative. Tolerating tube feeding. SUBJECTIVE: 08/22: MRI brain revealed no acute intracranial findings. MRCP revealed dilated common bile duct. Tolerating tube feeding. T-max 101.1. EEG revealed no seizure activity. Likely going to alcohol and benzodiazepine withdrawals. Objective Vital Signs / I&O: Vital Signs 08/21/18 13:45 08/21/18 14:00 08/21/18 14:15 Temperature Pulse Rate 67 66 66 Respiratory Rate 16 17 16 Blood Pressure 104/55 L 106/58 L 109/60 Pulse Oximetry 95 95 95 08/21/18 14:32 08/21/18 15:00 08/21/18 15:18 Temperature Pulse Rate 74 66 67 Respiratory Rate 24 17 Blood Pressure 114/62 Pulse Oximetry 98 97 08/21/18 15:28 08/21/18 16:00 08/21/18 17:00 Temperature Pulse Rate 70 72 Respiratory Rate 16 Blood Pressure Pulse Oximetry 92 L 91 L 08/21/18 18:00 08/21/18 18:51 08/21/18 19:00 Temperature Pulse Rate 71 71 70 Respiratory Rate Blood Pressure 136/72 Pulse Oximetry 97 98 99 08/21/18 19:58 08/21/18 20:00 08/21/18 20:06 Temperature 98.8 F Pulse Rate 67 67 Respiratory Rate 16 16 Blood Pressure Pulse Oximetry 99 99 08/21/18 21:00 08/21/18 22:00 08/21/18 23:00 Temperature Pulse Rate 77 72 72 Respiratory Rate Blood Pressure Pulse Oximetry 100 100 100 08/21/18 23:41 08/21/18 23:42 08/21/18 23:46 Temperature Pulse Rate 75 100 H Respiratory Rate 16 16 31 H Blood Pressure 167/101 H Pulse Oximetry 100 76 L 08/21/18 23:48 08/22/18 00:00 08/22/18 00:15 Temperature 96.8 F L Pulse Rate 102 H 87 78 Respiratory Rate 25 H 38 H 17 Blood Pressure 172/86 H 156/83 H 153/78 H Pulse Oximetry 98 100 98 08/22/18 00:30 08/22/18 00:45 08/22/18 01:00 Temperature Pulse Rate 78 77 78 Respiratory Rate 17 16 18 Blood Pressure 163/83 H 168/87 H 152/79 H Pulse Oximetry 99 99 93 L 08/22/18 01:15 08/22/18 01:30 08/22/18 01:45 Temperature Pulse Rate 75 75 84 Respiratory Rate 18 18 22 Blood Pressure 163/84 H 162/83 H 137/84 Pulse Oximetry 98 98 96 08/22/18 02:00 08/22/18 02:15 08/22/18 02:30 Temperature Pulse Rate 75 76 77 Respiratory Rate 18 19 18 Blood Pressure 164/79 H 163/82 H 161/86 H Pulse Oximetry 98 98 99 08/22/18 02:45 08/22/18 03:00 08/22/18 03:15 Temperature Pulse Rate 77 76 76 Respiratory Rate 19 18 18 Blood Pressure 168/90 H 168/90 H 162/88 H Pulse Oximetry 99 99 90 L 08/22/18 03:30 08/22/18 03:45 08/22/18 03:54 Temperature Pulse Rate 76 76 77 Respiratory Rate 19 19 18 Blood Pressure 161/89 H 162/89 H Pulse Oximetry 98 98 08/22/18 03:56 08/22/18 04:00 08/22/18 04:15 Temperature 101.0 F H Pulse Rate 79 79 Respiratory Rate 18 23 19 Blood Pressure 147/76 H 149/79 H Pulse Oximetry 97 99 96 08/22/18 04:30 08/22/18 04:45 08/22/18 05:00 Temperature Pulse Rate 81 82 82 Respiratory Rate 20 19 19 Blood Pressure 152/81 H 156/76 H 157/78 H Pulse Oximetry 96 96 95 08/22/18 05:15 08/22/18 05:30 08/22/18 05:45 Temperature Pulse Rate 83 82 81 Respiratory Rate 18 19 18 Blood Pressure 155/77 H 156/78 H 156/84 H Pulse Oximetry 95 95 95 08/22/18 06:00 08/22/18 06:15 08/22/18 06:30 Temperature Pulse Rate 81 81 81 Respiratory Rate 18 23 21 Blood Pressure 156/88 H 156/89 H 155/81 H Pulse Oximetry 95 95 93 L 08/22/18 06:45 08/22/18 07:00 08/22/18 07:15 Temperature Pulse Rate 81 80 79 Respiratory Rate 18 18 18 Blood Pressure 162/89 H 166/94 H 166/95 H Pulse Oximetry 93 L 93 L 93 L 08/22/18 07:30 08/22/18 07:45 08/22/18 08:00 Temperature Pulse Rate 79 80 90 Respiratory Rate 20 19 49 H Blood Pressure 168/95 H 166/95 H 163/97 H Pulse Oximetry 93 L 93 L 89 L 08/22/18 08:15 08/22/18 08:30 08/22/18 08:45 Temperature Pulse Rate 80 80 80 Respiratory Rate 19 18 19 Blood Pressure 169/86 H 168/91 H 164/94 H Pulse Oximetry 95 96 96 08/22/18 09:00 08/22/18 09:03 08/22/18 09:06 Temperature Pulse Rate 84 86 Respiratory Rate 26 H 24 21 Blood Pressure 165/79 H Pulse Oximetry 96 97 08/22/18 09:15 08/22/18 09:30 08/22/18 09:45 Temperature Pulse Rate 81 82 82 Respiratory Rate 20 19 19 Blood Pressure 180/94 H 185/94 H 183/95 H Pulse Oximetry 98 97 96 08/22/18 10:00 08/22/18 10:15 08/22/18 10:30 Temperature Pulse Rate 87 113 H 81 Respiratory Rate 19 19 20 Blood Pressure 185/99 H 184/109 H 178/100 H Pulse Oximetry 95 94 L 94 L 08/22/18 10:45 08/22/18 11:00 08/22/18 11:15 Temperature Pulse Rate 82 123 H 122 H Respiratory Rate 20 21 23 Blood Pressure 176/97 H 183/98 H 166/96 H Pulse Oximetry 94 L 93 L 93 L 08/22/18 11:22 08/22/18 11:31 08/22/18 11:45 Temperature Pulse Rate 120 H 81 83 Respiratory Rate 23 22 23 Blood Pressure 156/74 H 152/75 H Pulse Oximetry 92 L 93 L 93 L 08/22/18 12:00 08/22/18 12:15 Temperature Pulse Rate 83 83 Respiratory Rate 25 H 24 Blood Pressure 158/78 H 153/82 H Pulse Oximetry 93 L 93 L Intake & Output 08/21/18 08/22/18 08/22/18 18:59 06:59 18:59 Intake Total 1750 / 1750 2211.2 / 2211.2 150 / 150 Output Total 150 / 150 600 / 600 Balance 1600 / 1600 1611.2 / 1611.2 150 / 150 Weight 62 kg Intake: IV 1600 / 1600 1501.2 / 1501.2 150 / 150 Precedex Inj 200 MCG In NS Inj 50 / 50 200 / 200 150 / 150 48 ML @ 0.2 MCG/KG/HR 3.05 mls/ hr IV.CONT TITRATE PRN Rx#: [id number] LR 1000 mL Inj 1,000 ML @ 100 1000 / 1000 mls/hr IV.CONT .Q10H MARILEE Rx#: [id number] Diprivan 1000 mg/100 ml Inj 1, 100 / 100 80 / 80 000 mg In 100 ml @ 5 MCG/KG/MIN 1.764 mls/hr IV.CONT TITRATE PRN Rx#:[id number] Azithromycin Inj 500 MG In NS 250 / 250 250 / 250 Inj 250 ML @ 250 mls/hr IV.SIG Q24H [facility] Rx#:[id number] Maxipime Inj 2,000 MG In NS Inj 100 / 100 100 / 100 100 ML @ 200 mls/hr IV.SIG Q12H [facility] Rx#:[id number] Magnesium Sulfate 1 gm/D5W 100 100 / 100 100 / 100 ml Premix 100 ML @ 100 mls/hr IV.SIG Q1H [facility] Rx#:[id number] MVI-12 Inj 10 ML Thiamine Inj 511.2 / 511.2 100 MG Folvite Inj 1 MG In NS Inj 500 ML @ 127.8 mls/hr IV. SIG DAILY [facility] Rx#:[id number] Potassium Phosphate Inj 30 MMOL 260 / 260 In NS Inj 250 ML @ 43.333 mls/ hr IV.SIG ONCE ONE Rx#:[id number] Tube Feeding 150 / 150 310 / 310 Water Bolus Amount 400 / 400 Output: Urine 100 / 100 600 / 600 Urine Amount (Catheter) 50 / 50 Straight 50 / 50 Other: Date of Last Bowel Movement 08/20/18 08/20/18 08/20/18 Result Diagrams: 08/22/18 03:20 08/22/18 03:20 Other Results: Microbiology 08/19/18 16:05 Blood - Peripheral Aerobic Blood Culture - Preliminary No growth in 3 days 08/19/18 16:05 Blood - Peripheral Anaerobic Blood Culture - Preliminary No growth in 3 days 08/19/18 16:00 Blood - Peripheral Aerobic Blood Culture - Preliminary No growth in 3 days 08/19/18 16:00 Blood - Peripheral Anaerobic Blood Culture - Preliminary No growth in 3 days 08/20/18 16:50 Sputum - Endotracheal Gram Stain - Final 08/20/18 16:50 Sputum - Endotracheal Sputum Culture - Final Light growth normal respiratory stefanie 08/20/18 16:50 Urine - Catheterized Urine Streptococcus pneumoniae Antigen ( M - Final Presumptive negative for streptococcus pneumoniae antigen, suggesting no current or recent infection. Infection due to Streptococcus pneumoniae cannot be ruled out since the antigen present in the sample may be below the detection limit of the test. 08/20/18 16:50 Urine - Catheterized Urine Legionella Antigen - Final Presumptive negative for Legionella pneumophila serogroup 1 antigen in urine, suggesting no recent or recurrent infection. Infection due to Legionella cannot be ruled out since other serogroups and species may cause disease, antigen may not be present in urine in early infection, and the level of antigen present in the urine may be below the detection limit of the test. 08/19/18 16:00 Nasal Wash Influenza Types A,B Antigen - Final Negative for FLU A and B antigen Infection due to influenza A or B cannot be ruled out since the antigen present in the sample may be below the detection limit of the test. Imaging: Head CT 08/19/18 00:00 CONCLUSION: 1. Senescent changes without acute intracranial abnormality. . Chest X-Ray 08/19/18 15:51 CONCLUSION: Patchy basilar airspace disease most characteristic of bronchopneumonia. Liver Ultrasound 08/20/18 00:00 CONCLUSION: 1. Hepatomegaly with increased hepatic echogenicity consistent with hepatic steatosis versus medical liver disease. 2. There is a 2.5 cm subcapsular hyperechoic left lobe mass which may reflect focal fatty change or hemangioma. However given history of EtOH, recommend multiphase CT liver mass protocol on an outpatient basis for better evaluation. 3. Common bile duct is dilated up to 11 mm without definite etiology on ultrasound exam. Consider MRCP examination for further evaluation. 4. Gallbladder wall thickening and trace pericholecystic fluid. These findings are commonly seen in the setting of chronic liver disease but limit sonographic evaluation for acute acalculus cholecystitis. 5. Trace ascites. Chest X-Ray 08/20/18 07:00 CONCLUSION: 1. Endotracheal tube is in appropriate position with tip approximately 4 cm from the pineda. 2. Stable bibasilar airspace consolidation, left greater than right. Chest X-Ray 08/20/18 13:10 CONCLUSION: 1. Basilar patchiness consistent with probable pneumonia. Clinical correlation is recommended. 2. Nasogastric tube has its tip in the stomach. Chest X-Ray 08/20/18 15:42 CONCLUSION: Endotracheal tube and nasogastric tube in good position. Basilar airspace disease similar to earlier examination. Cholangiopancreatography MRI 08/21/18 00:00 CONCLUSION: 1. The common bile duct is dilated without an obvious cause. No filling defect or pancreatic masses identified. 2. There is suspected sludge within the gallbladder. There is pericholecystic fluid but there is also fluid around the liver and down the right paracolic gutter. 3. Small cyst dome of the liver. 4. Small pleural effusions bilaterally with some consolidation in the left lower lobe possible atelectasis or infiltrate. Chest X-Ray 08/21/18 06:00 CONCLUSION: Stable bibasilar partially consolidative infiltrates, left greater than right. Head CT 08/21/18 06:04 CONCLUSION: Stable noncontrast head CT. No acute intracranial abnormality is identified. . Head MRI 08/21/18 13:17 CONCLUSION: 1. Negative MR Brain non contrast. Chest X-Ray 08/22/18 06:00 CONCLUSION: No significant change patchy airspace opacities primarily at the bases. Endotracheal tube tip is now at the pineda; it needs to be pulled back a couple centimeters. Objective Remarks: GENERAL: 67-year-old female currently orotracheally intubated SKIN: Warm and dry. No rash HEAD: Atraumatic. Normocephalic. EYES: Pupils equal and round. No scleral icterus. No injection or drainage. ENT: No nasal bleeding or discharge. Mucous membranes pink and moist. NECK: Trachea midline. No JVD. CARDIOVASCULAR: Regular rate and rhythm. S1, S2. No S4. Without murmur RESPIRATORY: Coarse rhonchorous breath sounds appreciated bilaterally. No wheezing. GASTROINTESTINAL: Abdomen soft, non-tender, nondistended. Hypoactive bowel sounds appreciated. MUSCULOSKELETAL: Extremities without significant peripheral edema. No obvious deformities. NEUROLOGICAL: No obvious cranial nerve deficits. Currently sedated on the ventilator on propofol/fentanyl drips. Withdraws to pain. Positive gag and cough.. Assessment and Plan - Assessment and Plan Plan: NEURO/Psych: Acute encephalopathy secondary to hypercapnia History of alcohol dependence Possible benzodiazepine use Currently on midazolam at 2 mg an hour /fentanyl drips as needed for sedation/ analgesia while intubated Will utilize dexmedetomidine drip to wean Goal of RASS -2 Daily sedation vacation Monitor for signs and symptoms of alcohol withdrawal. Multivitamin/folate acid/thiamine Acetaminophen 650 mg per tube every 6 hours as needed fever CT brain 08/21 and MRI brain 08/21 revealed no acute intracranial findings. EEG results revealed no epileptic activity. 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 Follow-up on chest x-ray in 08/23 a.m. CV: Elevated troponin Essential hypertension Troponin is downward trending. Likely secondary to demand ischemia secondary to hypoxia/hypercapnia. Follow-up on 2D echocardiogramThe left ventricular systolic function is low normal with an estimated ejection fraction in the range of 50- 55%. pulmonary arterial pressure is 31.9 mmHg. As needed labetalol/hydralazine/Nitropaste Started on clonidine 1 mg 3 times daily and carvedilol 600 mg twice daily GI: History of anorexia/bulimia Chronic mild protein energy malnutrition hypoalbuminemia Elevated transaminases Initiate tube feedings with Glucerna 1.5 goal 45 cc an hour per nutrition's recommendations Liver ultrasound revealed. Hepatomegaly with increased hepatic echogenicity consistent with hepatic steatosis versus medical liver disease. 2.5 cm subcapsular hyperechoic left lobe mass which may reflect focal fatty change or hemangioma. Common bile duct is dilated up to 11 mm without definite etiology on ultrasound exam. Consider MRCP examination for further evaluation.Gallbladder wall thickening and trace pericholecystic fluid. These findings are commonly seen in the setting of chronic liver disease but limit sonographic evaluation for acute acalculus cholecystitis. Trace ascites. MRCP revealed dilated common bile duct without signs of stone or obstruction. Fluid around the gallbladder. Lansoprazole for GI prophylaxis Docusate serum/senna 1 tablet twice daily for bowel regimen Recheck lipase and transaminase in a.m. 08/23 /FEN/RENAL: Acute kidney injury Hypermagnesia Monitor I/O and BMP. Replace electrolytes as indicated per ICU electrolyte placement protocol Place Jasso catheter for accurate I's and O's in a critically ill patient. Discontinue LR at 100 cc an hour after 3 L ID: Acute community-acquired pneumonia Currently on cefepime day #3 and azithromycin day #4. Received ceftriaxone Influenza screen negative. F/u sputum culture Follow-up on urine Legionella pneumococcal antigen. Blood cultures x210 pending HEME: Acute leukocytosis CBC within normal limits No indication for transfusion of blood products at this time ENDO: Acute hyperglycemia Monitor bedside glucose every 6 hours while on steroids and administer low-dose aspart insulin sliding scale as indicated. PROPH: SCDs/enoxaparin 40 mg subcu daily for DVT prophylaxis. Lansoprazole for stress ulcer prophylaxis. ACCESS: Peripheral IV providing adequate access at this time. Level 2 follow-up
--- NOTE | 2018-08-22 18:32 | XR ---
EXAM DATE: 08/22/2018 6:27 PM EDT AGE/SEX: 67 years / Female INDICATIONS: Short of breath CLINICAL DATA: This is the patient's subsequent encounter. Patient reports that signs and symptoms h ave been present for 3 days and indicates a pain score of Nonresponsive. MEDICAL/SURGICAL HISTORY: . Chronic obstructive pulmonary disease. Anorexia. None. COMPARISON: C, CHEST 1V SINGLE AP, 08/22/2018. . FINDINGS: Endotracheal tube in good position. NG enters stomach. Bilateral mostly basilar airspace disease jc lar to earlier exam. Small effusions. No pneumothorax. CONCLUSION: Endotracheal tube is now in satisfactory position. NG enters stomach. Bilateral mostly basilar airspa ce disease similar to prior examination. Electronically signed by: Hunter Georges MD 08/22/2018 6:30 PM EDT
[2018-08-22 18:33] LABS: ABG Base Excess 0.5 mmol/L (-2-2); ABG PCO2 42 mmHg (38-42); ABG PO2 168 mmHG (61-120)
[2018-08-22] MEDS: Azithromycin Inj 500 MG in Sodium Chlor 0.9% Inj 250 ML IV.SIG SCH (19:47)
[2018-08-23] MEDS: Dexmedetomidine Inj 1,000 MCG in Sodium Chlor 0.9% Inj 240 ML IV.CONT PRN ×2 (00:31→12:00)
[2018-08-23] MEDS: Insulin NovoLOG Aspart Correctional Sugar Inj SQ SCH ×3 (01:02→13:49)
--- NOTE | 2018-08-23 04:25 | XR ---
EXAM DATE: 08/23/2018 4:21 AM EDT AGE/SEX: 67 years / Female INDICATIONS: Short of breath. CLINICAL DATA: This is the patient's subsequent encounter. Patient reports that signs and symptoms h ave been present for 4 - 6 days and indicates a pain score of 0/10. MEDICAL/SURGICAL HISTORY: Chronic obstructive pulmonary disease. Anorexia. Non-responsive. COMPARISON: C, CHEST 1V SINGLE AP, 08/22/2018. . FINDINGS: Right greater the left basilar predominant airspace consolidation persists and not significantly mendez ged. No large effusion demonstrated. No pneumothorax. Heart size stable, within normal limits. Endotracheal tube tip is approximately 4 cm above the pineda. Nasogastric tube courses into the stoma ch. CONCLUSION: No significant change. Electronically signed by: Reno Suggs MD 08/23/2018 4:24 AM EDT
[2018-08-23] MEDS: Chlorhexidine Gluconate 2% 1 Pack (2 Cloths) TOPICAL SCH (04:30)
[2018-08-23] MEDS: Oral Hygiene Kit OROPHARYNG SCH ×4 (04:30→19:19)
[2018-08-23] MEDS: fentaNYL 10 mcg/mL Premix Drip 2,500 MCG/250 ML BAG IV.SIG PRN (05:27)
[2018-08-23 05:58] LABS: ABG Base Excess 0.8 mmol/L (-2-2); ABG PCO2 29 mmHg (38-42); ABG PO2 160 mmHG (61-120)
[2018-08-23] MEDS: MethylPREDNISolone Sod Succinate Inj 125 MG/2 ML Vial IV.PUSH SCH ×3 (06:10→23:49)
[2018-08-23 06:14] LABS: Baso % (Auto) 0.2 % (0.0-2.0); Hematocrit 41.7 % (35.0-46.0); Lymph # (Auto) 0.5 th/mm3 (1.0-4.8); Lymph % (Auto) 4.5 % (9.0-44.0); Mean Corpuscular HGB Conc 33.6 % (32.0-36.0); Mean Corpuscular Hemoglobin 32.8 pg (27.0-34.0); Mean Corpuscular Volume 97.6 fL (80.0-100.0); Mean Platelet Volume 9.7 fL (7.0-11.0); Mono # (Auto) 0.4 th/mm3 (0.0-0.9); Mono % (Auto) 3.9 % (0.0-8.0); Neut # (Auto) 9.7 th/mm3 (1.8-7.7); Neut % (Auto) 91.4 % (16.0-70.0); Platelet Count 156 th/mm3 (150-450); Red Blood Count 4.27 mil/mm3 (4.00-5.30); Red Cell Distribution Width 17.2 % (11.6-17.2); White Blood Count 10.6 th/mm3 (4.0-11.0)
[2018-08-23] MEDS: Midazolam 50 MG/50 ML Inj 50 MG/50 ML BAG IV.CONT PRN (06:16)
[2018-08-23 06:33] LABS: Activated Partial Thrombo Time 27.2 sec (24.3-30.1); Prothrombin Time 9.7 sec (9.8-11.6)
[2018-08-23 06:35] LABS: Alanine Aminotransferase 72 U/L (10-53); Albumin 2.2 g/dL (3.4-5.0); Alkaline Phosphatase 179 U/L (45-117); Anion Gap 9 meq/L (5-15); Aspartate Aminotransferase 48 U/L (15-37); Blood Urea Nitrogen 44 mg/dL (7-18); Calcium 8.5 mg/dL (8.5-10.1); Chloride 110 meq/L (98-107); Glomerular Filtration Rate 58 mL/min (>89); Glucose,Random 181 mg/dL (74-106); Magnesium 2.3 mg/dL (1.5-2.5); Phosphorus 1.7 mg/dL (2.5-4.9); Sodium 143 meq/L (136-145); Total Protein 6.2 g/dL (6.4-8.2)
[2018-08-23] MEDS: Chlorhexidine 0.12% Oral Kit 15 ML UDC OROPHARYNG SCH (08:00)
[2018-08-23 08:19] LABS: Lymphocytes 7 % (9-44); Metamyelocytes 1 % (0-1); Monocytes 4 % (0-8); Myelocytes 2 % (0-0); Platelet Estimate Normal (Normal); Platelet Morphology Normal (Normal); RBC Morphology Normal (Normal); Toxic Granulation 2+
[2018-08-23] MEDS: Carvedilol 6.25 MG Tablet PO SCH (09:00)
[2018-08-23] MEDS ORDERED: Folic Acid 1 MG Tablet PO SCH (09:00)
[2018-08-23] MEDS: Enoxaparin Inj 40 MG/0.4 ML Syringe SQ SCH (09:00)
[2018-08-23] MEDS: Senna/Docusate Sodium 8.6/50 MG Tablet PO SCH (09:00)
--- NOTE | 2018-08-23 09:57 | P.PNCC ---
Subjective Subjective Remarks/Hospital Course: 67-year-old female who came in as a Jeimy Ramos. Her name is Meche Osorio and she does not have any prior visits to [facility]. She has PMH of COPD , ongoing tobacco abuse, anorexia/bulemia (participates in induced vomiting), EtOH abuse but reportedly abstaining for the last 2-3 months. She lives alone in a condominium and has reportedly been short of breath for several days. Condo residents have noticed that she has had confusion and lethargy. She was found in her condo on the floor near a sink, soiled with feces. She has had a productive cough without fever or chills. Denies chest pain. She states she does not have inhalers/nebs at home and her friend states "she avoids going to the doctor and does not have a PCP". She was in respiratory distress with audible wheezing and EVAC administered Solu-Medrol, DuoNeb x1 and albuterol neb x2 prior to arrival. When she arrived in the ED ABG was obtained on 4-5 L nasal cannula and pH was 7.20/PaCO2 of 74/PaO2 of 78/bicarb 28. She was placed on BiPAP 07/29. She was given albuterol nebs x3. Repeat ABG was pretty similar. Chest x-ray demonstrated bibasilar opacities. Blood cultures have been obtained and she has received Rocephin, azithromycin, 2 L normal saline bolus in the emergency department. 08/20: Patient was orotracheally intubated this a.m. due to altered mental status/ABGs. Currently resting in bed in no acute distress. NG tube replaced and we placed on propofol and fentanyl drips. Will initiate tube feeding. 08/21: Patient clenched down on sedation vacation this a.m. CT brain revealed no acute intracranial findings. EEG with similar findings with patient clenched an ET tube with no signs of epileptiform activity per preliminary read. We will try to use dexamphetamine attempt to wean. Liver ultrasound reviewed. Plan for MRCP today. Hepatitis panel pending. Beta C antibody negative. Tolerating tube feeding. SUBJECTIVE: 08/22: MRI brain revealed no acute intracranial findings. MRCP revealed dilated common bile duct. Tolerating tube feeding. T-max 101.1. EEG revealed no seizure activity. Likely going to alcohol and benzodiazepine withdrawals. 08/23: Remains sedated, orally intubated on mechanical ventilation. Switched to APRV mode last night due to worsening hypoxia. Febrile 103, temp though peripherally appears cold. Objective Vital Signs / I&O: Vital Signs 08/22/18 10:00 08/22/18 10:15 08/22/18 10:30 Temperature Pulse Rate 87 113 H 81 Respiratory Rate 19 19 20 Blood Pressure 185/99 H 184/109 H 178/100 H Pulse Oximetry 95 94 L 94 L 08/22/18 10:45 08/22/18 11:00 08/22/18 11:15 Temperature Pulse Rate 82 123 H 122 H Respiratory Rate 20 21 23 Blood Pressure 176/97 H 183/98 H 166/96 H Pulse Oximetry 94 L 93 L 93 L 08/22/18 11:22 08/22/18 11:31 08/22/18 11:45 Temperature Pulse Rate 120 H 81 83 Respiratory Rate 23 22 23 Blood Pressure 156/74 H 152/75 H Pulse Oximetry 92 L 93 L 93 L 08/22/18 12:00 08/22/18 12:15 08/22/18 12:30 Temperature Pulse Rate 83 83 81 Respiratory Rate 25 H 24 23 Blood Pressure 158/78 H 153/82 H 153/83 H Pulse Oximetry 93 L 93 L 93 L 08/22/18 12:45 08/22/18 13:00 08/22/18 13:15 Temperature Pulse Rate 85 85 81 Respiratory Rate 37 H 24 25 H Blood Pressure 149/82 H 151/77 H 150/79 H Pulse Oximetry 92 L 93 L 92 L 08/22/18 13:30 08/22/18 13:45 08/22/18 14:00 Temperature Pulse Rate 81 80 78 Respiratory Rate 23 23 23 Blood Pressure 151/75 H 154/83 H 154/84 H Pulse Oximetry 92 L 92 L 92 L 08/22/18 14:15 08/22/18 14:30 08/22/18 14:45 Temperature Pulse Rate 77 76 75 Respiratory Rate 21 21 21 Blood Pressure 160/87 H 159/90 H 156/91 H Pulse Oximetry 92 L 92 L 92 L 08/22/18 15:00 08/22/18 15:25 08/22/18 15:30 Temperature Pulse Rate 75 76 75 Respiratory Rate 21 20 21 Blood Pressure 160/93 H 175/85 H 172/86 H Pulse Oximetry 92 L 91 L 91 L 08/22/18 15:40 08/22/18 15:45 08/22/18 16:00 Temperature 98.9 F Pulse Rate 75 74 76 Respiratory Rate 21 21 22 Blood Pressure 174/90 H 167/90 H Pulse Oximetry 92 L 91 L 91 L 08/22/18 16:15 08/22/18 16:30 08/22/18 16:45 Temperature Pulse Rate 78 77 75 Respiratory Rate 20 21 21 Blood Pressure 160/87 H 155/81 H 147/74 H Pulse Oximetry 90 L 90 L 90 L 08/22/18 17:00 08/22/18 17:15 08/22/18 17:30 Temperature Pulse Rate 75 73 71 Respiratory Rate 18 20 19 Blood Pressure 149/75 H 133/67 127/63 Pulse Oximetry 92 L 92 L 91 L 08/22/18 17:45 08/22/18 18:00 08/22/18 18:15 Temperature Pulse Rate 72 96 H 80 Respiratory Rate 20 25 H 22 Blood Pressure 115/60 116/70 86/52 L Pulse Oximetry 90 L 91 L 91 L 08/22/18 18:30 08/22/18 18:35 08/22/18 19:00 Temperature Pulse Rate 80 80 79 Respiratory Rate 19 22 20 Blood Pressure 94/57 L 91/57 L Pulse Oximetry 93 L 93 L 94 L 08/22/18 20:00 08/22/18 21:00 08/22/18 21:12 Temperature 98.7 F Pulse Rate 77 77 78 Respiratory Rate 12 13 13 Blood Pressure 117/76 Pulse Oximetry 95 96 96 08/22/18 21:15 08/22/18 21:30 08/22/18 22:00 Temperature Pulse Rate 125 H 123 H 128 H Respiratory Rate 12 13 13 Blood Pressure 134/84 143/91 H Pulse Oximetry 94 L 94 L 94 L 08/22/18 22:30 08/22/18 23:00 08/22/18 23:30 Temperature Pulse Rate 82 80 78 Respiratory Rate 13 13 13 Blood Pressure 140/74 146/76 H 145/76 H Pulse Oximetry 95 95 98 08/23/18 00:00 08/23/18 00:30 08/23/18 01:00 Temperature 98.7 F Pulse Rate 77 76 75 Respiratory Rate 13 13 13 Blood Pressure 139/77 142/79 H 158/77 H Pulse Oximetry 99 99 99 08/23/18 01:30 08/23/18 02:00 08/23/18 02:30 Temperature Pulse Rate 77 79 79 Respiratory Rate 12 13 12 Blood Pressure 155/76 H 148/73 H 153/70 H Pulse Oximetry 99 99 99 08/23/18 03:00 08/23/18 03:30 08/23/18 04:00 Temperature 98.8 F Pulse Rate 79 77 75 Respiratory Rate 13 13 13 Blood Pressure 148/71 H 150/75 H 155/73 H Pulse Oximetry 99 99 99 08/23/18 04:02 08/23/18 04:30 08/23/18 05:00 Temperature Pulse Rate 75 78 79 Respiratory Rate 12 13 13 Blood Pressure 142/79 H 128/83 Pulse Oximetry 99 98 100 08/23/18 06:00 08/23/18 06:20 08/23/18 06:30 Temperature Pulse Rate 84 133 H 83 Respiratory Rate 17 13 13 Blood Pressure 93/66 L 139/72 Pulse Oximetry 99 99 08/23/18 07:00 08/23/18 08:00 Temperature Pulse Rate 83 Respiratory Rate 13 12 Blood Pressure 136/73 Pulse Oximetry 100 99 Intake & Output 08/22/18 08/23/18 08/23/18 18:59 06:59 18:59 Intake Total 898 / 898 2626.2 / 2626.2 Output Total 1400 / 1400 1000 / 1000 Balance -502 / -502 1626.2 / 1626.2 Weight 63 kg Intake: IV 350 / 350 1831.2 / 1831.2 Precedex Inj 200 MCG In NS Inj 250 / 250 150 / 150 48 ML @ 0.2 MCG/KG/HR 3.05 mls/ hr IV.CONT TITRATE PRN Rx#: [id number] Versed Inj 50 mg In 50 ml @ 2 100 / 100 MG/HR 2 mls/hr IV.CONT TITRATE PRN Rx#:[id number] Alburx 5% Inj 500 ML @ 250 mls/ 500 / 500 hr IV.SIG ONCE ONE Rx#:[id number] Azithromycin Inj 500 MG In NS 250 / 250 Inj 250 ML @ 250 mls/hr IV.SIG Q24H [facility] Rx#:[id number] Maxipime Inj 2,000 MG In NS Inj 100 / 100 100 / 100 100 ML @ 200 mls/hr IV.SIG Q12H [facility] Rx#:[id number] MVI-12 Inj 10 ML Thiamine Inj 511.2 / 511.2 100 MG Folvite Inj 1 MG In NS Inj 500 ML @ 127.8 mls/hr IV. SIG DAILY [facility] Rx#:[id number] fentaNYL 10 mcg/mL Premix Drip 200 / 200 2,500 mcg In 250 ml @ 50 MCG/HR 5 mls/hr IV.SIG TITRATE PRN Rx #:[id number] Tube Feeding 548 / 548 395 / 395 Water Bolus Amount 400 / 400 Output: Urine Amount (Catheter) 1400 / 1400 1000 / 1000 Indwelling Urethral Catheter 1400 / 1400 1000 / 1000 Other: Date of Last Bowel Movement 08/20/18 08/20/18 # Bowel Movements 0 Result Diagrams: 08/23/18 05:09 08/23/18 05:09 Imaging: Head CT 08/19/18 00:00 CONCLUSION: 1. Senescent changes without acute intracranial abnormality. . Chest X-Ray 08/19/18 15:51 CONCLUSION: Patchy basilar airspace disease most characteristic of bronchopneumonia. Liver Ultrasound 08/20/18 00:00 CONCLUSION: 1. Hepatomegaly with increased hepatic echogenicity consistent with hepatic steatosis versus medical liver disease. 2. There is a 2.5 cm subcapsular hyperechoic left lobe mass which may reflect focal fatty change or hemangioma. However given history of EtOH, recommend multiphase CT liver mass protocol on an outpatient basis for better evaluation. 3. Common bile duct is dilated up to 11 mm without definite etiology on ultrasound exam. Consider MRCP examination for further evaluation. 4. Gallbladder wall thickening and trace pericholecystic fluid. These findings are commonly seen in the setting of chronic liver disease but limit sonographic evaluation for acute acalculus cholecystitis. 5. Trace ascites. Chest X-Ray 08/20/18 07:00 CONCLUSION: 1. Endotracheal tube is in appropriate position with tip approximately 4 cm from the pineda. 2. Stable bibasilar airspace consolidation, left greater than right. Chest X-Ray 08/20/18 13:10 CONCLUSION: 1. Basilar patchiness consistent with probable pneumonia. Clinical correlation is recommended. 2. Nasogastric tube has its tip in the stomach. Chest X-Ray 08/20/18 15:42 CONCLUSION: Endotracheal tube and nasogastric tube in good position. Basilar airspace disease similar to earlier examination. Cholangiopancreatography MRI 08/21/18 00:00 CONCLUSION: 1. The common bile duct is dilated without an obvious cause. No filling defect or pancreatic masses identified. 2. There is suspected sludge within the gallbladder. There is pericholecystic fluid but there is also fluid around the liver and down the right paracolic gutter. 3. Small cyst dome of the liver. 4. Small pleural effusions bilaterally with some consolidation in the left lower lobe possible atelectasis or infiltrate. Chest X-Ray 08/21/18 06:00 CONCLUSION: Stable bibasilar partially consolidative infiltrates, left greater than right. Head CT 08/21/18 06:04 CONCLUSION: Stable noncontrast head CT. No acute intracranial abnormality is identified. . Head MRI 08/21/18 13:17 CONCLUSION: 1. Negative MR Brain non contrast. Chest X-Ray 08/22/18 06:00 CONCLUSION: No significant change patchy airspace opacities primarily at the bases. Endotracheal tube tip is now at the pineda; it needs to be pulled back a couple centimeters. Chest X-Ray 08/22/18 18:01 CONCLUSION: Endotracheal tube is now in satisfactory position. NG enters stomach. Bilateral mostly basilar airspace disease similar to prior examination. Chest X-Ray 08/23/18 06:00 CONCLUSION: No significant change. Objective Remarks: GENERAL: 67-year-old female currently orotracheally intubated SKIN: Warm and dry. No rash HEAD: Atraumatic. Normocephalic. EYES: Pupils equal and round. No scleral icterus. No injection or drainage. ENT: No nasal bleeding or discharge. Mucous membranes pink and moist. NECK: Trachea midline. No JVD. CARDIOVASCULAR: Regular rate and rhythm. S1, S2. No S4. Without murmur RESPIRATORY: Orally intubated on mechanical ventilation, APRV mode FiO2 80%, coarse rhonchorous breath sounds appreciated bilaterally. No wheezing. GASTROINTESTINAL: Abdomen soft, non-tender, nondistended. Hypoactive bowel sounds appreciated. MUSCULOSKELETAL: Extremities without significant peripheral edema. No obvious deformities. NEUROLOGICAL: No obvious cranial nerve deficits. Currently sedated on the ventilator on propofol/fentanyl drips. Withdraws to pain. Positive gag and cough.. Assessment and Plan - Assessment and Plan Plan: NEURO/Psych: Acute encephalopathy secondary to hypercapnia History of alcohol dependence Possible benzodiazepine use Currently on midazolam/fentanyl drips as needed for sedation/analgesia while intubated, dexmedetomidine drip Goal of RASS -2 Daily sedation vacation Monitor for signs and symptoms of alcohol withdrawal. Multivitamin/folate acid/thiamine Acetaminophen 650 mg per tube every 6 hours as needed fever CT brain 08/21 and MRI brain 08/21 revealed no acute intracranial findings. EEG results revealed no epileptic activity. RESP: Acute hypercapnic respiratory failure Acute COPD exacerbation Acute community-acquired pneumonia Ongoing tobacco abuse APRV FiO2 80% Ventilator bundle Albuterol/ipratropium aerosols every 4 hours with albuterol aerosols every 2 hours as needed for dyspnea Budesonide 0.5/2 1 inhalation twice daily Methylprednisolone succinate 40 mg IV every 8 hours Tobacco cessation counseling discussed per note of overnight consulting property manager. Follow-up on chest x-ray as needed. CV: Elevated troponin Essential hypertension Troponin is downward trending. Likely secondary to demand ischemia secondary to hypoxia/hypercapnia. Follow-up on 2D echocardiogramThe left ventricular systolic function is low normal with an estimated ejection fraction in the range of 50- 55%. pulmonary arterial pressure is 31.9 mmHg. As needed labetalol/hydralazine/Nitropaste Started on clonidine 1 mg 3 times daily and carvedilol 600 mg twice daily GI: History of anorexia/bulimia Chronic mild protein energy malnutrition hypoalbuminemia Elevated transaminases Initiate tube feedings with Glucerna 1.5 goal 45 cc an hour per nutrition's recommendations Liver ultrasound revealed. Hepatomegaly with increased hepatic echogenicity consistent with hepatic steatosis versus medical liver disease. 2.5 cm subcapsular hyperechoic left lobe mass which may reflect focal fatty change or hemangioma. Common bile duct is dilated up to 11 mm without definite etiology on ultrasound exam. Consider MRCP examination for further evaluation.Gallbladder wall thickening and trace pericholecystic fluid. These findings are commonly seen in the setting of chronic liver disease but limit sonographic evaluation for acute acalculus cholecystitis. Trace ascites. MRCP revealed dilated common bile duct without signs of stone or obstruction. Fluid around the gallbladder. Lansoprazole for GI prophylaxis Docusate serum/senna 1 tablet twice daily for bowel regimen Recheck lipase and transaminase in a.m. 08/23 /FEN/RENAL: Acute kidney injury Hypermagnesia Monitor I/O and BMP. Replace electrolytes as indicated per ICU electrolyte placement protocol Jasso catheter for accurate I's and O's in a critically ill patient. Off IVF ID: Acute community-acquired pneumonia Currently on cefepime day #4 and azithromycin day #5. Received ceftriaxone Influenza screen negative. F/u sputum culture Follow-up on urine Legionella pneumococcal antigen. Blood cultures 08/19 negative Repeat Blood and sputum cultures ordered 08/23 in v/o fever. Check CPK, Procalcitonin. HEME: Acute leukocytosis Bandemia noted. No indication for transfusion of blood products at this time ENDO: Acute hyperglycemia Monitor bedside glucose every 6 hours while on steroids and administer low-dose aspart insulin sliding scale as indicated. PROPH: SCDs/enoxaparin 40 mg subcu daily for DVT prophylaxis. Lansoprazole for stress ulcer prophylaxis. ACCESS: Peripheral IV providing adequate access at this time. Condition critical with worsening respiratory failure on APRV mode mechanical ventilation. Time spent on critical care excluding procedures 40 minutes
[2018-08-23 12:01] LABS: ABG Base Excess -0.5 mmol/L (-2-2); ABG PCO2 41 mmHg (38-42); ABG PO2 88 mmHG (61-120)
[2018-08-23] MEDS: Carboxymethylcellulose 0.5% Opth Drops 15 ML Bottle EACH EYE SCH (12:23)
--- NOTE | 2018-08-23 17:22 | P.CONPAL ---
Consult Service: Palliative Care Requesting Physician: Timo Leiva Reason for Consult: a. To assist with evaluation and management of symptoms including: pain, dyspnea, fever. b. To assist medical decision maker(s) with: better understanding of current medical conditions; weighing benefits/burdens of medical treatment options; making medical treatment decisions. Primary Care Provider: UNKNOWN History of Present Illness History of Present Illness: Ms. Osorio is a 67 year old female with past medical history of COPD, tobacco abuse, anorexia/ bulimia and alcohol abuse (none reported in 2-3 months). Friends report she "avoids seeing a doctor." Patient presented to [facility] ER on 08/19/18 after her neighbors noticed her to be confused with increased lethargy. She was found on the floor of her condo soiled with feces. She was in respiratory distress with audible wheezing. EVAC administered Solu-medrol, Duoneb and Albuterol. Upon arrival to the ED: * ABG on 4-5 L nasal cannula revealed pH 7.20/PaCO2 of 74/PaO2 of 78/bicarb 28. She was placed on BiPAP 07/29. She was given albuterol nebs x3. Repeat ABG was pretty similar. * Chest x-ray demonstrated bibasilar opacities. * Blood cultures have been obtained and she has received Rocephin, azithromycin , 2 L normal saline bolus in the emergency department. Patient was intubated on 08/20/18 due to altered mental status and no improvement in ABGs. NG tube was placed. She was started in Propofol and Fentanyl. CT brain revealed no acute intracranial findings. EEG revealed diffuse slowing consistent with moderate diffuse encephalopathy, no seizure activity noted. Liver ultrasound revealed a small cyst measuring 1.8 x 1.6 x 1.6 cm in the right posterior lobe of the liver, hepatomegaly with increased hepatic echogenicity consistent with hepatic steatosis versus medical liver disease, common bile duct dilated up to 11 mm without definite etiology, gallbladder wall thickening with trace delfina-cholecystic fluid, trace ascites. Echocardiogram EF 50-55% aortic valve sclerosis present, trace tricuspid and mitral valve regurgitation, pulmonary arterial pressure 31.9. Head MRI negative on 08/21/18. MRCP revealed dilated common bile duct. Tolerating tube feeding. T-max 101.1. EEG revealed no seizure activity. Likely going to alcohol and benzodiazepine withdrawals. Patient had significant decline through out the day today. She was febrile this morning, now hypothermic temp 96. She is now bradycardic and hypertensive. She was requiring high FiO2 vent support this morning, now decreased to 50%, PEEP 8 , on APRV. All extremities are cold to touch. She has mottling all extremities. Palliative care was consulted to assist with clarification of medical treatment goals. Discussed with Dr. Leiva and nurse, Shekhar. Function/Cognitive Trajectory: Patient was living at home independent prior to this admission. Notes indicate the patient had been reporting shortness of breath for several days had a productive cough without fever or chills. Review of Systems ROS per friends report prior to admission, patient unable to provide review of systems at this time given critical condition. Constitutional: Reports anorexia, Reports fatigue, Reports lack of energy, Reports weight loss Cardiovascular: Reports shortness of breath, Reports shortness of breath with activity Respiratory: Reports chest congestion, Reports cough, Reports shortness of breath Hematologic/Lymphatic: Reports easy bruising PMFSH - History History Provided By: Patient, Friend (Leta) - Medical History Medical History: Medical History (Last Reviewed 08/20/18 @ 09:21 by Yancy Ledbetter) Anorexia nervosa with bulimia COPD (chronic obstructive pulmonary disease) History of ETOH abuse Smoker - Surgical History Surgical History: Surgical History (Last Reviewed 08/20/18 @ 09:21 by Yancy Ledbetter) H/O cosmetic surgery - Family History Family History: Family History (Last Reviewed 08/20/18 @ 08:26 by Jese Dietz MD) Other Unknown family medical history - Social History I have reviewed the patient's Social History: Yes - Tobacco History Second Hand Smoke Exposure: Yes Tobacco Use In Past 30 Days: Yes Smoking Status: Current every day smoker Tobacco Type: Cigarettes - Alcohol History How Often Do You Have a Drink Containing Alcohol: 4 or more times a week ( history of daily drinking, reportedly abstained last 2-3 month) - Substance Use History Substance History: No History of Abuse - Travel History Recent Travel in the [place] Within the Last 8 Weeks: No Recent Travel Out of the Country Within the Last 8 Weeks: No - Immunization History Tetanus Immunization: >5 Years Medications and Allergies Active Medications: Active Medications Acetaminophen (Tylenol Liq) 650 mg PO Q6H PRN PRN Reason: FEVER Albuterol (Duoneb Neb (Ted)) 1 ampul NEB Q4HR NEB [facility] Last Admin: 08/23/18 16:17 Dose: 1 ampul Albuterol (Albuterol Neb (Prn)) 2.5 mg NEB Q2HR NEB PRN PRN Reason: WHEEZING Artificial Tears (Refresh Tears 0.5% Opth Drops) 1 drop EACH EYE BID [facility] Last Admin: 08/23/18 12:23 Dose: 1 drop Bisacodyl (Dulcolax Supp) 10 mg RECTAL DAILY PRN PRN Reason: SEVERE CONSITIPATION Budesonide (Pulmocort Respule Neb) 0.5 mg NEB Q12HR NEB [facility] Last Admin: 08/23/18 08:14 Dose: 0.5 mg Carvedilol (Coreg) 6.25 mg PO BID [facility] Last Admin: 08/23/18 09:00 Dose: 6.25 mg Chlorhexidine Gluconate (Chlorhexidine 2% Cloth) 3 pack TOPICAL DAILY@0400 [facility] Stop: 08/25/18 03:59 Last Admin: 08/23/18 04:30 Dose: 3 pack Chlorhexidine Gluconate (Chlorhexidine 2% Cloth) 3 pack TOPICAL DAILY@0400 PRN PRN Reason: Extra cloth needed Stop: 08/25/18 03:59 Chlorhexidine Gluconate (Peridex 0.12% Oral Kit) 15 ml OROPHARYNG BID@0800, 2000 [facility] Last Admin: 08/23/18 08:00 Dose: 15 ml Clonidine HCl (Catapres) 0.1 mg PO Q8HR [facility] Last Admin: 08/23/18 13:49 Dose: 0.1 mg Dextrose (D50w Vial) 50 ml IV.PUSH UNSCH PRN PRN Reason: PER HYPOGLYCEMIA PROTOCOL Enoxaparin Sodium (Lovenox Inj) 40 mg SQ DAILY [facility] Last Admin: 08/23/18 09:00 Dose: 40 mg Folic Acid (Folic Acid) 1 mg PO DAILY [facility] Last Admin: 08/23/18 09:00 Dose: 1 mg Glucagon (Glucagon Inj) 1 mg OTHER PRN PRN PRN Reason: for Hypoglycemia Protocol Hydralazine HCl (Apresoline Inj) 10 mg IV.PUSH Q1H PRN PRN Reason: SBP > 165 Last Admin: 08/22/18 10:45 Dose: 10 mg Azithromycin 500 mg/ Sodium (Chloride) 250 mls @ 250 mls/hr IV.SIG Q24H TED Last Infusion: 08/23/18 01:03 Dose: Infused Magnesium Sulfate 4 gm/ Sodium (Chloride) 100 mls @ 50 mls/hr IV.SIG UNSCH PRN PRN Reason: For Magnesium 0.9 - 1.1 mg/dL Magnesium Sulfate 2 gm/ Sodium (Chloride) 100 mls @ 50 mls/hr IV.SIG UNSCH PRN PRN Reason: For Magnesium 1.2 - 1.6 mg/dL Potassium Chloride (Kcl 40 Meq Premix Inj) 40 meq in 100 mls @ 25 mls/hr IV.SIG Q2H PRN PRN Reason: For Potassium 2.8 - 3.2 mEq/L Potassium Chloride (Kcl 40 Meq Premix Inj) 40 meq in 100 mls @ 25 mls/hr IV.SIG UNSCH PRN PRN Reason: For Potassium 3.3 - 3.5 mEq/L Potassium Chloride (Kcl 20 Meq Premix Inj) 20 meq in 100 mls @ 50 mls/hr IV.SIG Q2H PRN PRN Reason: For Potassium 2.8 - 3.2 mEq/L Potassium Phosphate 30 mmol/ (Sodium Chloride) 260 mls @ 42 mls/hr IV.SIG UNSCH PRN PRN Reason: SEE LABEL COMMENTS Sodium Phosphate 30 mmol/ (Sodium Chloride) 260 mls @ 42 mls/hr IV.SIG UNSCH PRN PRN Reason: For Phosphorus < 2.5 mg/dL Potassium Chloride (Kcl 20 Meq Premix Inj) 20 meq in 100 mls @ 50 mls/hr IV.SIG Q2H PRN PRN Reason: For Potassium 3.3 - 3.5 mEq/L Nicardipine HCl 25 mg/ Sodium (Chloride) 250 mls @ 50 mls/hr IV.CONT TITRATE PRN; Protocol PRN Reason: Per Protocol Fentanyl (Fentanyl 10 Mcg/Ml Premix Drip) 2,500 mcg in 250 mls @ 5 mls/hr IV.SIG TITRATE PRN; Protocol PRN Reason: Per Protocol Last Admin: 08/23/18 05:27 Dose: 100 mcg/hr, 10 mls/hr Cefepime HCl 2,000 mg/ Sodium (Chloride) 100 mls @ 200 mls/hr IV.SIG Q12H TED Last Admin: 08/23/18 12:23 Dose: 200 mls/hr Midazolam HCl (Versed Inj) 50 mg in 50 mls @ 2 mls/hr IV.CONT TITRATE PRN; Protocol PRN Reason: Per Protocol Last Admin: 08/23/18 06:16 Dose: 5 mg/hr, 5 mls/hr Dexmedetomidine HCl 1,000 mcg/ (Sodium Chloride) 250 mls @ 3.05 mls/hr IV.CONT TITRATE PRN; Protocol PRN Reason: Per Protocol Last Admin: 08/23/18 12:00 Dose: 1.5 mcg/kg/hr, 22.87 mls/hr Insulin Aspart (Novolog Insulin Correctional Sugar Inj) 0 unit SQ Q6HR TED; Protocol Last Admin: 08/23/18 13:49 Dose: 3 unit Labetalol HCl (Trandate Inj) 10 mg IV.PUSH Q1H PRN PRN Reason: Sbp>165, Dbp>90, Hr>65 Lactulose (Lactulose Liq) 30 ml PO DAILY PRN PRN Reason: SEVERE CONSITIPATION Lansoprazole (Prevacid Solutab) 30 mg NG/OG DAILY [facility] Last Admin: 08/23/18 09:00 Dose: 30 mg Methylprednisolone Sodium Succinate (Solumedrol Inj) 40 mg IV.PUSH Q8H [facility] Last Admin: 08/23/18 15:38 Dose: 40 mg Miscellaneous Medication () 1 each OROPHARYNG 0000,0400,1200,1600 [facility] Last Admin: 08/23/18 12:25 Dose: 1 each Multivitamins (Theragran) 1 tab PO DAILY [facility] Last Admin: 08/23/18 09:00 Dose: 1 tab Nitroglycerin (Nitro-Bid 2% Oint) 2 inch TOPICAL Q6HR PRN PRN Reason: Sys Bp Greater Than 165 [facility] Ondansetron HCl (Zofran Inj) 4 mg IV.PUSH Q6H PRN PRN Reason: NAUSEA OR VOMITING Potassium Bicarb/Potassium Chloride (K-Lyte Cl Eff) 50 meq PO UNSCH PRN PRN Reason: For Potassium 3.3 - 3.5 mEq/L Potassium Phosphate (K-Phos Original) 2,000 mg PO Q4H PRN PRN Reason: Phosphorus Less Than 2.5 mg/dL Potassium Phosphate (K-Phos Original) 2,000 mg PO UNSCH PRN PRN Reason: SEE LABEL COMMENTS Senna/Docusate Sodium (Delfina-Colace) 1 tab PO BID [facility] Last Admin: 08/23/18 09:00 Dose: 1 tab Sennosides (Senokot) 17.2 mg PO Q12H PRN PRN Reason: Moderate Constipation Sodium Chloride (Ns Flush) 2 ml IV.FLUSH BID [facility] Last Admin: 08/23/18 09:00 Dose: 2 ml Sodium Chloride (Ns Flush) 2 ml IV.FLUSH PRN PRN PRN Reason: FLUSH AFTER USING IV ACCESS Sterile Water (Free Water) 100 ml NG/OG Q6HR [facility] Last Admin: 08/23/18 12:24 Dose: 100 ml Thiamine HCl (Vitamin B1) 100 mg PO DAILY [facility] Last Admin: 08/23/18 09:00 Dose: 100 mg Allergies Allergy/AdvReac Type Severity Reaction Status Date / Time No Known Allergies Allergy Verified 08/19/18 15:43 Home Medications Medication Instructions Recorded Confirmed Type No Known Home Medications 08/19/18 08/19/18 History Advance Directives Advance Directives Date on File: 06/23/12 Living Will: Yes Healthcare Surrogate: Yes Health Care Surrogate Name and Number: Leta Lemus, friend/[facility]: [phone] Today's verbally stated goals: Patient is not capacitated to make her own healthcare decisions, will not regain capacity. Family/friends goals: Spoke with healthcare surrogate, Leta via telephone to provide medical update. After lengthy conversation reviewing current medical problems, prognosis, treatment option including continued of aggressive care versus transition to comfort focused measures with withdrawal of life support. Leta feels confident that the patient would not want "any of this." She feels that the patient would not find any quality of life less than what she had prior to admission acceptable and knows that the patient would not want continued life support. Ethical and Legal Issues: No known concerns at this time. Physical Exam Vital Signs: Vital Signs - 24 hr 08/22/18 17:00 08/22/18 17:15 08/22/18 17:30 Temperature Pulse Rate 75 73 71 Respiratory Rate 18 20 19 Blood Pressure 149/75 H 133/67 127/63 Pulse Oximetry 92 L 92 L 91 L 08/22/18 17:45 08/22/18 18:00 08/22/18 18:15 Temperature Pulse Rate 72 96 H 80 Respiratory Rate 20 25 H 22 Blood Pressure 115/60 116/70 86/52 L Pulse Oximetry 90 L 91 L 91 L 08/22/18 18:30 08/22/18 18:35 08/22/18 19:00 Temperature Pulse Rate 80 80 79 Respiratory Rate 19 22 20 Blood Pressure 94/57 L 91/57 L Pulse Oximetry 93 L 93 L 94 L 08/22/18 20:00 08/22/18 21:00 08/22/18 21:12 Temperature 98.7 F Pulse Rate 77 77 78 Respiratory Rate 12 13 13 Blood Pressure 117/76 Pulse Oximetry 95 96 96 08/22/18 21:15 08/22/18 21:30 08/22/18 22:00 Temperature Pulse Rate 125 H 123 H 128 H Respiratory Rate 12 13 13 Blood Pressure 134/84 143/91 H Pulse Oximetry 94 L 94 L 94 L 08/22/18 22:30 08/22/18 23:00 08/22/18 23:30 Temperature Pulse Rate 82 80 78 Respiratory Rate 13 13 13 Blood Pressure 140/74 146/76 H 145/76 H Pulse Oximetry 95 95 98 08/23/18 00:00 08/23/18 00:30 08/23/18 01:00 Temperature 98.7 F Pulse Rate 77 76 75 Respiratory Rate 13 13 13 Blood Pressure 139/77 142/79 H 158/77 H Pulse Oximetry 99 99 99 08/23/18 01:30 08/23/18 02:00 08/23/18 02:30 Temperature Pulse Rate 77 79 79 Respiratory Rate 12 13 12 Blood Pressure 155/76 H 148/73 H 153/70 H Pulse Oximetry 99 99 99 08/23/18 03:00 08/23/18 03:30 08/23/18 04:00 Temperature 98.8 F Pulse Rate 79 77 75 Respiratory Rate 13 13 13 Blood Pressure 148/71 H 150/75 H 155/73 H Pulse Oximetry 99 99 99 08/23/18 04:02 08/23/18 04:30 08/23/18 05:00 Temperature Pulse Rate 75 78 79 Respiratory Rate 12 13 13 Blood Pressure 142/79 H 128/83 Pulse Oximetry 99 98 100 08/23/18 06:00 08/23/18 06:20 08/23/18 06:30 Temperature Pulse Rate 84 133 H 83 Respiratory Rate 17 13 13 Blood Pressure 93/66 L 139/72 Pulse Oximetry 99 99 08/23/18 07:00 08/23/18 07:30 08/23/18 08:00 Temperature Pulse Rate 83 83 82 Respiratory Rate 13 13 13 Blood Pressure 136/73 121/66 124/79 Pulse Oximetry 100 100 99 08/23/18 08:30 08/23/18 09:00 08/23/18 09:30 Temperature Pulse Rate 80 82 82 Respiratory Rate 13 12 13 Blood Pressure 139/87 121/83 122/76 Pulse Oximetry 98 98 95 08/23/18 10:00 08/23/18 10:30 08/23/18 10:50 Temperature 103.6 F H 103.6 F H 103.4 F H Pulse Rate 80 76 Respiratory Rate 13 11 L Blood Pressure 136/83 134/76 Pulse Oximetry 97 94 L 08/23/18 11:00 08/23/18 11:07 08/23/18 11:30 Temperature 103.5 F H 103.1 F H Pulse Rate 72 73 Respiratory Rate 22 22 22 Blood Pressure 133/73 116/70 Pulse Oximetry 95 95 08/23/18 12:00 08/23/18 12:30 08/23/18 13:00 Temperature Pulse Rate 70 66 61 Respiratory Rate 24 24 28 H Blood Pressure 126/65 144/73 H 161/77 H Pulse Oximetry 96 95 95 08/23/18 13:30 08/23/18 14:00 08/23/18 14:30 Temperature 96.3 F L 96.3 F L Pulse Rate 56 L 54 L 53 L Respiratory Rate 11 L 11 L 11 L Blood Pressure 170/81 H 180/86 H 187/88 H Pulse Oximetry 96 96 95 08/23/18 15:00 08/23/18 15:27 08/23/18 15:30 Temperature 96.1 F L 96.1 F L 96.1 F L Pulse Rate 58 L 51 L 51 L Respiratory Rate 16 11 L 11 L Blood Pressure 194/90 H 198/93 H 204/95 H Pulse Oximetry 96 95 95 08/23/18 16:00 08/23/18 16:01 Temperature 96.1 F L 96.1 F L Pulse Rate 56 L 57 L Respiratory Rate 10 L 11 L Blood Pressure 159/73 H 159/73 H Pulse Oximetry 97 99 I&O: Intake & Output 08/21/18 08/22/18 08/23/18 08/24/18 06:59 06:59 06:59 06:59 Intake Total 4656.2 / 4656.2 3961.2 / 3961.2 3524.2 / 3524.2 350 / 350 Output Total 1150 / 1150 750 / 750 2400 / 2400 Balance 3506.2 / 3506.2 3211.2 / 3211.2 1124.2 / 1124.2 350 / 350 Weight 61 kg 62 kg 63 kg Physical Exam: CONSTITUTIONAL/GENERAL: This is a chronically, critically ill patient on mechanical ventilation. TUBES/LINES/DRAINS: ETT, OG, PIV, bilateral soft wrist restraints, Jasso catheter SKIN: Extremities cold to touch, mottling of all extremities noted. HEAD: Atraumatic. Normocephalic. EYES: Eyes closed. ENT: Unable to assess hearing given clinical condition. Throat difficult to visualize secondary to edematous tongue. Oral mucosa dry. NECK: Trachea midline. CARDIOVASCULAR: Bradycardic. Distant heart sounds. RESPIRATORY/CHEST: On mech vent, coarse breath sounds bilaterally. GASTROINTESTINAL: Abdomen distended. Bowel sounds hypoactive. GENITOURINARY: Without palpable bladder distension. Jasso catheter in place. MUSCULOSKELETAL: Extremities with edema. + mottling. LYMPHATICS: not examined. NEUROLOGICAL: Unresponsive, off sedation. PSYCHIATRIC: unresponsive. Diagnostic Tests Laboratory: Laboratory Results - last 72 hr 08/20/18 08/21/18 08/21/18 17:51 00:12 04:35 WBC RBC Hgb Hct MCV MCH MCHC RDW Plt Count MPV Prelim Diff (Auto) Neut % (Auto) Lymph % (Auto) [place] % (Auto) Eos % (Auto) Baso % (Auto) Neut # (Auto) Lymph # (Auto) [place] # (Auto) Eos # (Auto) Baso # (Auto) WBC Differential Seg Neuts % (Manual) Band Neuts % (Manual) Lymphocytes % (Manual) Monocytes % (Manual) Metamyelocytes % (Man) Myelocytes % (Man) Promyelocytes % (Man) Abs Neuts (Manual) Nucleated RBCs/100 WBC Differential Comment Toxic Granulation Platelet Estimate Platelet Morphology RBC Morphology Hematology Comments PT INR APTT Puncture Site Patient Temperature O2 Saturation ABG pH ABG pCO2 ABG pO2 ABG HCO3 ABG O2 Content ABG Base Excess ABG Methemoglobin Marco Test Hemoglobin Carboxyhemoglobin O2 Delivery Device Vent Setting Inspired O2 Critical Value Sodium Potassium Chloride Carbon Dioxide Anion Gap BUN Creatinine Estimated GFR POC Glucose 196 H 170 H Random Glucose Hemoglobin A1c 6.6 H Lactic Acid Calcium Prot Corrected Calcium Phosphorus Magnesium Total Bilirubin AST ALT Alkaline Phosphatase Ammonia Total Creatine Kinase Total Protein Albumin Carcinoembryonic Ag CA 19-9 Antigen Urine Color Urine Clarity Urine pH Ur Specific [place] Urine Protein Urine Glucose (UA) Urine Ketones Urine Occult Blood Urine Nitrate Urine Bilirubin Urine Urobilinogen Ur Leukocyte Esterase Urine RBC Urine WBC Ur Squamous Epith Cells Urine Bacteria Hyaline Casts Micro UA Comment Ur Microscopic Review Urine Culture Comments Hepatitis A IgM Ab Hep Bs Antigen Hep B Core IgM Ab Hep C IgG Ab 08/21/18 08/21/18 08/21/18 04:35 04:35 04:35 WBC 8.3 RBC 3.56 L Hgb 11.9 Hct 34.2 L MCV 96.3 MCH 33.4 MCHC 34.7 RDW 16.8 Plt Count 143 L MPV 10.3 Prelim Diff (Auto) Slide review pending Neut % (Auto) 92.1 H Lymph % (Auto) 2.2 L [place] % (Auto) 5.3 Eos % (Auto) 0.1 Baso % (Auto) 0.3 Neut # (Auto) 7.1 Lymph # (Auto) 0.2 L [place] # (Auto) 0.4 Eos # (Auto) 0.0 Baso # (Auto) 0.0 WBC Differential Manual diff final Seg Neuts % (Manual) 64 Band Neuts % (Manual) 26 H Lymphocytes % (Manual) 4 L Monocytes % (Manual) 5 Metamyelocytes % (Man) Myelocytes % (Man) Promyelocytes % (Man) 1 H Abs Neuts (Manual) 7.6 Nucleated RBCs/100 WBC 1 H Differential Comment . Toxic Granulation Platelet Estimate Low L Platelet Morphology Normal RBC Morphology Hematology Comments PT INR APTT 28.1 Puncture Site Patient Temperature O2 Saturation ABG pH ABG pCO2 ABG pO2 ABG HCO3 ABG O2 Content ABG Base Excess ABG Methemoglobin Marco Test Hemoglobin Carboxyhemoglobin O2 Delivery Device Vent Setting Inspired O2 Critical Value Sodium 135 L Potassium 3.7 Chloride 103 Carbon Dioxide 23.8 Anion Gap 8 BUN 36 H Creatinine 0.90 Estimated GFR 62 L POC Glucose Random Glucose 134 H Hemoglobin A1c Lactic Acid Calcium 7.1 L* D Prot Corrected Calcium 8.2 L Phosphorus 1.8 L Magnesium 1.9 Total Bilirubin 0.5 AST 88 H ALT 68 H Alkaline Phosphatase 89 Ammonia Total Creatine Kinase Total Protein 5.1 L D Albumin 1.7 L D Carcinoembryonic Ag CA 19-9 Antigen Urine Color Urine Clarity Urine pH Ur Specific [place] Urine Protein Urine Glucose (UA) Urine Ketones Urine Occult Blood Urine Nitrate Urine Bilirubin Urine Urobilinogen Ur Leukocyte Esterase Urine RBC Urine WBC Ur Squamous Epith Cells Urine Bacteria Hyaline Casts Micro UA Comment Ur Microscopic Review Urine Culture Comments Hepatitis A IgM Ab Hep Bs Antigen Hep B Core IgM Ab Hep C IgG Ab 08/21/18 08/21/18 08/21/18 06:19 17:09 19:11 WBC RBC Hgb Hct MCV MCH MCHC RDW Plt Count MPV Prelim Diff (Auto) Neut % (Auto) Lymph % (Auto) [place] % (Auto) Eos % (Auto) Baso % (Auto) Neut # (Auto) Lymph # (Auto) [place] # (Auto) Eos # (Auto) Baso # (Auto) WBC Differential Seg Neuts % (Manual) Band Neuts % (Manual) Lymphocytes % (Manual) Monocytes % (Manual) Metamyelocytes % (Man) Myelocytes % (Man) Promyelocytes % (Man) Abs Neuts (Manual) Nucleated RBCs/100 WBC Differential Comment Toxic Granulation Platelet Estimate Platelet Morphology RBC Morphology Hematology Comments PT INR APTT Puncture Site Left femoral Patient Temperature 98.6 O2 Saturation 91 ABG pH 7.31 L ABG pCO2 47 H ABG pO2 75 ABG HCO3 23 ABG O2 Content 17.1 ABG Base Excess -2.5 L ABG Methemoglobin 1.8 Marco Test Hemoglobin 13.3 Carboxyhemoglobin 0.5 O2 Delivery Device Ventilator Vent Setting [id number] Inspired O2 40 Critical Value No Sodium Potassium Chloride Carbon Dioxide Anion Gap BUN Creatinine Estimated GFR POC Glucose 130 H Random Glucose Hemoglobin A1c Lactic Acid Calcium Prot Corrected Calcium Phosphorus Magnesium Total Bilirubin AST ALT Alkaline Phosphatase Ammonia Total Creatine Kinase Total Protein Albumin Carcinoembryonic Ag CA 19-9 Antigen Urine Color Urine Clarity Urine pH Ur Specific [place] Urine Protein Urine Glucose (UA) Urine Ketones Urine Occult Blood Urine Nitrate Urine Bilirubin Urine Urobilinogen Ur Leukocyte Esterase Urine RBC Urine WBC Ur Squamous Epith Cells Urine Bacteria Hyaline Casts Micro UA Comment Ur Microscopic Review Urine Culture Comments Hepatitis A IgM Ab Nonreactive Hep Bs Antigen Nonreactive Hep B Core IgM Ab Nonreactive Hep C IgG Ab Nonreactive 08/21/18 08/22/18 08/22/18 23:45 03:20 03:20 WBC RBC Hgb Hct MCV MCH MCHC RDW Plt Count MPV Prelim Diff (Auto) Neut % (Auto) Lymph % (Auto) [place] % (Auto) Eos % (Auto) Baso % (Auto) Neut # (Auto) Lymph # (Auto) [place] # (Auto) Eos # (Auto) Baso # (Auto) WBC Differential Seg Neuts % (Manual) Band Neuts % (Manual) Lymphocytes % (Manual) Monocytes % (Manual) Metamyelocytes % (Man) Myelocytes % (Man) Promyelocytes % (Man) Abs Neuts (Manual) Nucleated RBCs/100 WBC Differential Comment Toxic Granulation Platelet Estimate Platelet Morphology RBC Morphology Hematology Comments PT INR APTT Puncture Site Patient Temperature O2 Saturation ABG pH ABG pCO2 ABG pO2 ABG HCO3 ABG O2 Content ABG Base Excess ABG Methemoglobin Marco Test Hemoglobin Carboxyhemoglobin O2 Delivery Device Vent Setting Inspired O2 Critical Value Sodium 142 Potassium 4.9 D Chloride 110 H Carbon Dioxide 23.5 Anion Gap 9 BUN 46 H Creatinine 1.13 H Estimated GFR 48 L POC Glucose 141 H Random Glucose 150 H Hemoglobin A1c Lactic Acid Calcium 8.6 D Prot Corrected Calcium Phosphorus 3.4 D Magnesium 2.9 H D Total Bilirubin AST ALT Alkaline Phosphatase Ammonia Total Creatine Kinase Total Protein Albumin Carcinoembryonic Ag 4.7 CA 19-9 Antigen 14.4 Urine Color Urine Clarity Urine pH Ur Specific [place] Urine Protein Urine Glucose (UA) Urine Ketones Urine Occult Blood Urine Nitrate Urine Bilirubin Urine Urobilinogen Ur Leukocyte Esterase Urine RBC Urine WBC Ur Squamous Epith Cells Urine Bacteria Hyaline Casts Micro UA Comment Ur Microscopic Review Urine Culture Comments Hepatitis A IgM Ab Hep Bs Antigen Hep B Core IgM Ab Hep C IgG Ab 08/22/18 08/22/18 08/22/18 03:20 06:14 08:05 WBC 11.3 H RBC 4.38 Hgb 13.8 Hct 41.4 MCV 94.4 MCH 31.6 MCHC 33.5 RDW 16.9 Plt Count 188 D MPV 9.5 Prelim Diff (Auto) Slide review pending Neut % (Auto) 92.6 H Lymph % (Auto) 1.9 L [place] % (Auto) 5.4 Eos % (Auto) 0.0 Baso % (Auto) 0.1 Neut # (Auto) 10.5 H Lymph # (Auto) 0.2 L [place] # (Auto) 0.6 Eos # (Auto) 0.0 Baso # (Auto) 0.0 WBC Differential Manual diff final Seg Neuts % (Manual) 83 H Band Neuts % (Manual) 14 H Lymphocytes % (Manual) 2 L Monocytes % (Manual) Metamyelocytes % (Man) Myelocytes % (Man) 1 H Promyelocytes % (Man) Abs Neuts (Manual) 11.1 H Nucleated RBCs/100 WBC 2 H Differential Comment . Toxic Granulation 1+ H Platelet Estimate Normal Platelet Morphology Normal RBC Morphology Hematology Comments PT INR APTT Puncture Site Patient Temperature O2 Saturation ABG pH ABG pCO2 ABG pO2 ABG HCO3 ABG O2 Content ABG Base Excess ABG Methemoglobin Marco Test Hemoglobin Carboxyhemoglobin O2 Delivery Device Vent Setting Inspired O2 Critical Value Sodium Potassium Chloride Carbon Dioxide Anion Gap BUN Creatinine Estimated GFR POC Glucose 178 H Random Glucose Hemoglobin A1c Lactic Acid Calcium Prot Corrected Calcium Phosphorus Magnesium Total Bilirubin AST ALT Alkaline Phosphatase Ammonia Total Creatine Kinase Total Protein Albumin Carcinoembryonic Ag CA 19-9 Antigen Urine Color Yellow Urine Clarity Hazy H Urine pH 6.0 Ur Specific [place] 1.024 Urine Protein 100 H Urine Glucose (UA) Negative Urine Ketones Negative Urine Occult Blood Negative Urine Nitrate Negative Urine Bilirubin Negative Urine Urobilinogen Less than 2 Ur Leukocyte Esterase Negative Urine RBC 1 Urine WBC 1 Ur Squamous Epith Cells 1 Urine Bacteria Occasional H Hyaline Casts 4 Micro UA Comment Cath-culture ind Ur Microscopic Review Not Reportable Urine Culture Comments Cath-cult indicated Hepatitis A IgM Ab Hep Bs Antigen Hep B Core IgM Ab Hep C IgG Ab 08/22/18 08/22/18 08/22/18 12:29 18:22 18:28 WBC RBC Hgb Hct MCV MCH MCHC RDW Plt Count MPV Prelim Diff (Auto) Neut % (Auto) Lymph % (Auto) [place] % (Auto) Eos % (Auto) Baso % (Auto) Neut # (Auto) Lymph # (Auto) [place] # (Auto) Eos # (Auto) Baso # (Auto) WBC Differential Seg Neuts % (Manual) Band Neuts % (Manual) Lymphocytes % (Manual) Monocytes % (Manual) Metamyelocytes % (Man) Myelocytes % (Man) Promyelocytes % (Man) Abs Neuts (Manual) Nucleated RBCs/100 WBC Differential Comment Toxic Granulation Platelet Estimate Platelet Morphology RBC Morphology Hematology Comments PT INR APTT Puncture Site Left radial Patient Temperature 98.6 O2 Saturation 96 ABG pH 7.39 ABG pCO2 42 ABG pO2 168 H ABG HCO3 25 ABG O2 Content 19.0 ABG Base Excess 0.5 ABG Methemoglobin 1.8 Marco Test Present Hemoglobin 13.8 Carboxyhemoglobin 0.5 O2 Delivery Device Ventilator Vent Setting Inspired O2 Critical Value No Sodium Potassium Chloride Carbon Dioxide Anion Gap BUN Creatinine Estimated GFR POC Glucose 183 H 123 H Random Glucose Hemoglobin A1c Lactic Acid Calcium Prot Corrected Calcium Phosphorus Magnesium Total Bilirubin AST ALT Alkaline Phosphatase Ammonia Total Creatine Kinase Total Protein Albumin Carcinoembryonic Ag CA 19-9 Antigen Urine Color Urine Clarity Urine pH Ur Specific [place] Urine Protein Urine Glucose (UA) Urine Ketones Urine Occult Blood Urine Nitrate Urine Bilirubin Urine Urobilinogen Ur Leukocyte Esterase Urine RBC Urine WBC Ur Squamous Epith Cells Urine Bacteria Hyaline Casts Micro UA Comment Ur Microscopic Review Urine Culture Comments Hepatitis A IgM Ab Hep Bs Antigen Hep B Core IgM Ab Hep C IgG Ab 08/22/18 08/23/18 08/23/18 23:23 05:09 05:09 WBC 10.6 RBC 4.27 Hgb 14.0 Hct 41.7 MCV 97.6 MCH 32.8 MCHC 33.6 RDW 17.2 Plt Count 156 MPV 9.7 Prelim Diff (Auto) Slide review pending Neut % (Auto) 91.4 H Lymph % (Auto) 4.5 L [place] % (Auto) 3.9 Eos % (Auto) 0.0 Baso % (Auto) 0.2 Neut # (Auto) 9.7 H Lymph # (Auto) 0.5 L [place] # (Auto) 0.4 Eos # (Auto) 0.0 Baso # (Auto) 0.0 WBC Differential Manual diff final Seg Neuts % (Manual) 72 H Band Neuts % (Manual) 14 H Lymphocytes % (Manual) 7 L Monocytes % (Manual) 4 Metamyelocytes % (Man) 1 Myelocytes % (Man) 2 H Promyelocytes % (Man) Abs Neuts (Manual) 9.4 H Nucleated RBCs/100 WBC Differential Comment . Toxic Granulation 2+ H Platelet Estimate Normal Platelet Morphology Normal RBC Morphology Normal Hematology Comments PT INR APTT Puncture Site Patient Temperature O2 Saturation ABG pH ABG pCO2 ABG pO2 ABG HCO3 ABG O2 Content ABG Base Excess ABG Methemoglobin Marco Test Hemoglobin Carboxyhemoglobin O2 Delivery Device Vent Setting Inspired O2 Critical Value Sodium 143 Potassium 5.0 Chloride 110 H Carbon Dioxide 24.0 Anion Gap 9 BUN 44 H Creatinine 0.96 Estimated GFR 58 L POC Glucose 130 H Random Glucose 181 H Hemoglobin A1c Lactic Acid Calcium 8.5 Prot Corrected Calcium Phosphorus 1.7 L D Magnesium 2.3 D Total Bilirubin 0.4 AST 48 H ALT 72 H Alkaline Phosphatase 179 H Ammonia Total Creatine Kinase Total Protein 6.2 L D Albumin 2.2 L Carcinoembryonic Ag CA 19-9 Antigen Urine Color Urine Clarity Urine pH Ur Specific [place] Urine Protein Urine Glucose (UA) Urine Ketones Urine Occult Blood Urine Nitrate Urine Bilirubin Urine Urobilinogen Ur Leukocyte Esterase Urine RBC Urine WBC Ur Squamous Epith Cells Urine Bacteria Hyaline Casts Micro UA Comment Ur Microscopic Review Urine Culture Comments Hepatitis A IgM Ab Hep Bs Antigen Hep B Core IgM Ab Hep C IgG Ab 08/23/18 08/23/18 08/23/18 05:09 05:09 05:33 WBC RBC Hgb Hct MCV MCH MCHC RDW Plt Count MPV Prelim Diff (Auto) Neut % (Auto) Lymph % (Auto) [place] % (Auto) Eos % (Auto) Baso % (Auto) Neut # (Auto) Lymph # (Auto) [place] # (Auto) Eos # (Auto) Baso # (Auto) WBC Differential Seg Neuts % (Manual) Band Neuts % (Manual) Lymphocytes % (Manual) Monocytes % (Manual) Metamyelocytes % (Man) Myelocytes % (Man) Promyelocytes % (Man) Abs Neuts (Manual) Nucleated RBCs/100 WBC Differential Comment Toxic Granulation Platelet Estimate Platelet Morphology RBC Morphology Hematology Comments PT 9.7 L INR 1.0 APTT 27.2 Puncture Site Patient Temperature O2 Saturation ABG pH ABG pCO2 ABG pO2 ABG HCO3 ABG O2 Content ABG Base Excess ABG Methemoglobin Marco Test Hemoglobin Carboxyhemoglobin O2 Delivery Device Vent Setting Inspired O2 Critical Value Sodium Potassium Chloride Carbon Dioxide Anion Gap BUN Creatinine Estimated GFR POC Glucose 177 H Random Glucose Hemoglobin A1c Lactic Acid Calcium Prot Corrected Calcium Phosphorus Magnesium Total Bilirubin AST ALT Alkaline Phosphatase Ammonia 33 H Total Creatine Kinase Total Protein Albumin Carcinoembryonic Ag CA 19-9 Antigen Urine Color Urine Clarity Urine pH Ur Specific [place] Urine Protein Urine Glucose (UA) Urine Ketones Urine Occult Blood Urine Nitrate Urine Bilirubin Urine Urobilinogen Ur Leukocyte Esterase Urine RBC Urine WBC Ur Squamous Epith Cells Urine Bacteria Hyaline Casts Micro UA Comment Ur Microscopic Review Urine Culture Comments Hepatitis A IgM Ab Hep Bs Antigen Hep B Core IgM Ab Hep C IgG Ab 08/23/18 08/23/18 08/23/18 05:36 11:03 11:22 WBC RBC Hgb Hct MCV MCH MCHC RDW Plt Count MPV Prelim Diff (Auto) Neut % (Auto) Lymph % (Auto) [place] % (Auto) Eos % (Auto) Baso % (Auto) Neut # (Auto) Lymph # (Auto) [place] # (Auto) Eos # (Auto) Baso # (Auto) WBC Differential Seg Neuts % (Manual) Band Neuts % (Manual) Lymphocytes % (Manual) Monocytes % (Manual) Metamyelocytes % (Man) Myelocytes % (Man) Promyelocytes % (Man) Abs Neuts (Manual) Nucleated RBCs/100 WBC Differential Comment Toxic Granulation Platelet Estimate Platelet Morphology RBC Morphology Hematology Comments PT INR APTT Puncture Site Right radial Patient Temperature 98.6 O2 Saturation 96 ABG pH 7.52 H* ABG pCO2 29 L ABG pO2 160 H ABG HCO3 24 ABG O2 Content 19.1 ABG Base Excess 0.8 ABG Methemoglobin 1.8 Marco Test Present Hemoglobin 13.9 Carboxyhemoglobin 0.6 O2 Delivery Device Ventilator Vent Setting Aprv Inspired O2 90 Critical Value Yes Sodium Potassium Chloride Carbon Dioxide Anion Gap BUN Creatinine Estimated GFR POC Glucose Random Glucose Hemoglobin A1c Lactic Acid 3.3 H Calcium Prot Corrected Calcium Phosphorus Magnesium Total Bilirubin AST ALT Alkaline Phosphatase Ammonia Total Creatine Kinase 91 Total Protein Albumin Carcinoembryonic Ag CA 19-9 Antigen Urine Color Urine Clarity Urine pH Ur Specific [place] Urine Protein Urine Glucose (UA) Urine Ketones Urine Occult Blood Urine Nitrate Urine Bilirubin Urine Urobilinogen Ur Leukocyte Esterase Urine RBC Urine WBC Ur Squamous Epith Cells Urine Bacteria Hyaline Casts Micro UA Comment Ur Microscopic Review Urine Culture Comments Hepatitis A IgM Ab Hep Bs Antigen Hep B Core IgM Ab Hep C IgG Ab 08/23/18 08/23/18 11:51 13:23 WBC RBC Hgb Hct MCV MCH MCHC RDW Plt Count MPV Prelim Diff (Auto) Neut % (Auto) Lymph % (Auto) [place] % (Auto) Eos % (Auto) Baso % (Auto) Neut # (Auto) Lymph # (Auto) [place] # (Auto) Eos # (Auto) Baso # (Auto) WBC Differential Seg Neuts % (Manual) Band Neuts % (Manual) Lymphocytes % (Manual) Monocytes % (Manual) Metamyelocytes % (Man) Myelocytes % (Man) Promyelocytes % (Man) Abs Neuts (Manual) Nucleated RBCs/100 WBC Differential Comment Toxic Granulation Platelet Estimate Platelet Morphology RBC Morphology Hematology Comments PT INR APTT Puncture Site Right radial Patient Temperature 98.6 O2 Saturation 94 ABG pH 7.38 ABG pCO2 41 ABG pO2 88 ABG HCO3 24 ABG O2 Content 18.1 ABG Base Excess -0.5 ABG Methemoglobin 1.6 Marco Test Present Hemoglobin 13.7 Carboxyhemoglobin 0.4 O2 Delivery Device Ventilator Vent Setting Bilevel Inspired O2 60 Critical Value No Sodium Potassium Chloride Carbon Dioxide Anion Gap BUN Creatinine Estimated GFR POC Glucose 210 H Random Glucose Hemoglobin A1c Lactic Acid Calcium Prot Corrected Calcium Phosphorus Magnesium Total Bilirubin AST ALT Alkaline Phosphatase Ammonia Total Creatine Kinase Total Protein Albumin Carcinoembryonic Ag CA 19-9 Antigen Urine Color Urine Clarity Urine pH Ur Specific [place] Urine Protein Urine Glucose (UA) Urine Ketones Urine Occult Blood Urine Nitrate Urine Bilirubin Urine Urobilinogen Ur Leukocyte Esterase Urine RBC Urine WBC Ur Squamous Epith Cells Urine Bacteria Hyaline Casts Micro UA Comment Ur Microscopic Review Urine Culture Comments Hepatitis A IgM Ab Hep Bs Antigen Hep B Core IgM Ab Hep C IgG Ab Result Diagrams: 08/23/18 05:09 08/23/18 05:09 Microbiology: Microbiology 08/22/18 08:05 Urine Culture - Preliminary Catheterized Urine No growth in 24 hours 08/19/18 16:05 Aerobic Blood Culture - Preliminary Blood - Peripheral No growth in 4 days Anaerobic Blood Culture - Preliminary No growth in 4 days 08/19/18 16:00 Aerobic Blood Culture - Preliminary Blood - Peripheral No growth in 4 days Anaerobic Blood Culture - Preliminary No growth in 4 days 08/20/18 16:50 Gram Stain - Final Sputum - Endotracheal Sputum Culture - Final Light growth normal respiratory stefanie 08/20/18 16:50 Streptococcus pneumoniae Antigen (M - Final Urine - Catheterized Urine Presumptive negative for streptococcus pneumoniae antigen, suggesting no current or recent infection. Infection due to Streptococcus pneumoniae cannot be ruled out since the antigen present in the sample may be below the detection limit of the test. 08/20/18 16:50 Legionella Antigen - Final Urine - Catheterized Urine Presumptive negative for Legionella pneumophila serogroup 1 antigen in urine, suggesting no recent or recurrent infection. Infection due to Legionella cannot be ruled out since other serogroups and species may cause disease, antigen may not be present in urine in early infection, and the level of antigen present in the urine may be below the detection limit of the test. Imaging: Liver Ultrasound 08/20/18 00:00 CONCLUSION: 1. Hepatomegaly with increased hepatic echogenicity consistent with hepatic steatosis versus medical liver disease. 2. There is a 2.5 cm subcapsular hyperechoic left lobe mass which may reflect focal fatty change or hemangioma. However given history of EtOH, recommend multiphase CT liver mass protocol on an outpatient basis for better evaluation. 3. Common bile duct is dilated up to 11 mm without definite etiology on ultrasound exam. Consider MRCP examination for further evaluation. 4. Gallbladder wall thickening and trace pericholecystic fluid. These findings are commonly seen in the setting of chronic liver disease but limit sonographic evaluation for acute acalculus cholecystitis. 5. Trace ascites. Cholangiopancreatography MRI 08/21/18 00:00 CONCLUSION: 1. The common bile duct is dilated without an obvious cause. No filling defect or pancreatic masses identified. 2. There is suspected sludge within the gallbladder. There is pericholecystic fluid but there is also fluid around the liver and down the right paracolic gutter. 3. Small cyst dome of the liver. 4. Small pleural effusions bilaterally with some consolidation in the left lower lobe possible atelectasis or infiltrate. Head CT 08/21/18 06:04 CONCLUSION: Stable noncontrast head CT. No acute intracranial abnormality is identified. . Head MRI 08/21/18 13:17 CONCLUSION: 1. Negative MR Brain non contrast. Chest X-Ray 08/23/18 06:00 CONCLUSION: No significant change. Procedures: * Intubated. Patient/Family Conference Present at Family Conference: Spoke with Leta YOUSIF via phone. And later met at bedside. Family Conference Time: 30 Family Conference Location: Bedside, Telephone Issues Discussed: * Palliative care role, purpose, approach * Additional medical, psychosocial, and spiritual history * Patients general health, functional status, and cognitive changes in the months leading up to the current hospitalization * Patient/family understanding of the current medical problems * Patient/family understanding of prognosis * Patients goals of care as best understood from advance directives and/or conversations and/or values * Current medical treatment options and benefits/burdens of those options * Likely scenarios comparing ongoing aggressive care with a transition to comfort measures only * Questions answered to the best of my ability * Palliative care contact information provided Assessment and Plan - Disease Oriented Problem List (1) Pneumonia (2) Bradycardia (3) Hypertension (4) COPD (chronic obstructive pulmonary disease) (5) Alcohol abuse (6) Tobacco abuse (7) Respiratory failure (8) Sepsis - Symptom Scale (1) Pain 0-10 Scale: Unable to quantify (2) Dyspnea 0-10 Scale: Unable to quantify (3) Fever 0-10 Scale: Unable to quantify Pertinent Non-Medical Issues: Psychosocial: Single. Supported by friends. 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 Legal: Patient is not capacitated to make her own healthcare decisions, will not regain capacity. According to written advanced directive she has named her friend Leta Lemus as her healthcare surrogate. Ethical issues impacting care: No known concerns at this time. Important Contacts: * Leta Lemus, healthcare surrogate/friend: [phone] Prognosis: Ms. Osorio is a 67-year-old female with past medical history of COPD, alcohol and tobacco abuse. She was admitted to the hospital with pneumonia, possible withdrawal symptoms, respiratory failure and underlying COPD. Patient has had significant decline in the past 24 hours appears to be in shock, febrile, hypertensive, bradycardic with mottling of all extremities. Patient with poor prognosis for meaningful recovery. She appears to be dying. Code Status: No Code DNR Plan: * Patient is not capacitated to make her own healthcare decisions, will not regain capacity. According to written advanced directive she has named her friend Leta Lemus as her healthcare surrogate. * NO CODE * Spoke with friend/HCS, Leta Lemus via telephone and then later in person. She is clear that the patient would not want life prolonging measures or procedures at this time. She feels that the patient would not find the past 4 days on mechanical vent acceptable. She is certain that given the change in her clinical condition that she is ready to go and would like to transition to comfort focused care with withdrawal of life support and hospice services. * Discussed with Dr. Leiva, Dr. Monet and nurse, Shekhar. * Hospice consulted. We will keep patient inpatient hospice this evening if she survives overnight will consider transfer to hospice care center in a.m. if stable. * SYMPTOMS: Pain: Patient does not appear in pain during my visit, she is unresponsive. Dyspnea: Patient remains on mechanical ventilation. Fever: Was febrile with temp 103.4 earlier today now hypothermic with temperature 96. Orders written for transition to comfort focused care. Will monitor medications , need and effect. * Palliative care number provided. * Palliative care will continue to follow throughout hospital course to assist with symptom management further clarification of medical treatment goals as needed. Appreciation Thank you for the opportunity to participate in the care of Meche Osorio. Attestation Attestation: To help prompt me to consider important information that might be impacting today's encounter and assessment, information from prior notes written by myself or my colleagues may have been "brought forward" into today's note. My signature on this note, however, is an attestation that I personally performed the exam, history, and/or decision-making noted today, and, unless otherwise indicated, the interactions with patient, family, and staff as well as the review of records all occurred today. I also attest that the listed assessment and stated plan reflect my best clinical judgment today based on the combination of historical information, prior notes, and today's exam/ interactions. When time spent is documented, it refers only to time spent today by the signer, or if indicated, combined time spent today by collaborating physician/nurse practitioner.
[2018-08-23] MEDS ORDERED: Morphine Sulfate Inj 8 MG/ML Vial IV.PUSH ONE (17:25)
[2018-08-23] MEDS ORDERED: Acetaminophen 650 MG Supp RECTAL PRN (17:25)
[2018-08-23] MEDS ORDERED: Hyoscyamine Inj 0.5 MG/ML Ampul IV.PUSH ONE (17:25)
[2018-08-23] MEDS ORDERED: Morphine Inj 4 MG/ML Vial IV.PUSH ONE (17:25)
[2018-08-23] MEDS ORDERED: Hyoscyamine Inj 0.5 MG/ML Ampul IV.PUSH PRN (17:25)
[2018-08-23] MEDS: Morphine Sulfate Inj 8 MG/ML Vial IV.PUSH PRN ×5 (18:49→23:50)
[2018-08-23] MEDS: Morphine Inj 4 MG/ML Vial IV.PUSH SCH ×2 (19:41→23:49)
[2018-08-24] MEDS: Morphine Sulfate Inj 8 MG/ML Vial IV.PUSH PRN ×9 (01:08→10:17)
[2018-08-24] MEDS: Morphine Inj 4 MG/ML Vial IV.PUSH PRN ×8 (02:05→14:53)
[2018-08-24] MEDS: Morphine Inj 4 MG/ML Vial IV.PUSH SCH ×3 (03:55→11:20)
[2018-08-24] MEDS: MethylPREDNISolone Sod Succinate Inj 125 MG/2 ML Vial IV.PUSH SCH ×2 (06:07→14:50)
[2018-08-24 12:38] VITALS: BP 53/37; RESP 8; TEMP 91.2; O2SAT 59
[2018-08-24 15:02] VITALS: PULSE 43
== END 2018-08-24 15:20 | disposition expired ==
LOC: NEPE 15:33 → NEDA 20:05 → EDBD 20:05 → HIMC 21:45
PROVIDERS: ADMIT Family Medicine; ATTEND Family Medicine